=== PATIENT | female | born 1995 | race Caucasian/White ===

== ENCOUNTER 2016-08-17 08:28 | Emergency (ER) | payer OTHER ==
--- NOTE | 2016-08-17 09:14 | ED ---
General Adult HPI - General Chief complaint: Abdominal Pain Stated complaint: Abd.pain Time Seen by Provider: 08/17/16 09:00 Source: patient, RN notes reviewed Mode of arrival: ambulatory Limitations: no limitations - History of Present Illness Initial comments: Patient 21-year-old female who presents emergency room today with chief complaint of abdominal discomfort over the last 3 days. She does admit that pain comes and goes. She describes it as aching and throbbing at times. States that at times it's a 7 out of 10. States more comfortable currently. Denies any other associated symptoms. States that time she's noticed that it's worse with certain movements located on the right side of the abdomen. She also admits to some discomfort with the abdomen after urination. Patient denies any other complaints or symptoms. Patient denies any recent fever, chills, shortness of breath, chest pain, back pain, nausea or vomiting, numbness or tingling, dysuria or hematuria, constipation or diarrhea, headaches or visual changes, or any other complaints. - Related Data Previous Rx's Medication Instructions Recorded Nitrofurantoin Monohyd/M-Cryst 100 mg PO Q12HR #14 cap 08/17/16 [Macrobid] Allergies Allergy/AdvReac Type Severity Reaction Status Date / Time No Known Allergies Allergy Verified 08/17/16 08:49 Review of Systems ROS Statement: Those systems with pertinent positive or pertinent negative responses have been documented in the HPI. ROS Other: All systems not noted in ROS Statement are negative. Past Medical History Past Medical History: No Reported History Additional Past Medical History / Comment(s): GALL BLADDER PROBLEMS-ABDOMEN SORE UNDER GALL BLADDER AREA History of Any Multi-Drug Resistant Organisms: None Reported Past Surgical History: Section Additional Past Surgical History / Comment(s): X 2 Past Anesthesia/Blood Transfusion Reactions: No Reported Reaction Past Psychological History: Anxiety Smoking Status: Never smoker Past Alcohol Use History: None Reported Past Drug Use History: None Reported - Past Family History Mother History Unknown: Yes General Exam - General Exam Comments Initial Comments: General: The patient is awake and alert, in no distress, and does not appear acutely ill. Eye: Pupils are equal, round and reactive to light, extra-ocular movements are intact. No nystagmus. There is normal conjunctiva bilaterally. No signs of icterus. Ears, nose, mouth and throat: There are moist mucous membranes and no oral lesions. Neck: The neck is supple, there is no tenderness or JVD. Cardiovascular: There is a regular rate and rhythm. No murmur, rub or gallop is appreciated. Respiratory: Lungs are clear to auscultation, respirations are non-labored, breath sounds are equal. No wheezes, stridor, rales, or rhonchi. Gastrointestinal: Normal appearance of the abdomen. Normal bowel sounds. Abdomen soft on palpation. Patient does have mild tenderness suprapubic and right lower quadrant. No rebound tenderness. No guarding. No CVA tenderness. Musculoskeletal: Normal ROM, no tenderness. Strength 5/5. Sensation intact. Pulses equal bilaterally 2+. Neurological: A&O x 3. CN II-XII intact, There are no obvious motor or sensory deficits. Coordination appears grossly intact. Speech is normal. Skin: Skin is warm and dry and no rashes or lesions are noted. Psychiatric: Cooperative, appropriate mood & affect, normal judgment. Limitations: no limitations Course Vital Signs 08/17/16 08:30 Temperature 98.2 F Pulse Rate 79 Respiratory 17 Rate Blood Pressure 118/70 O2 Sat by Pulse 100 Oximetry Medical Decision Making - Medical Decision Making Case discussed in detail with attending physician Dr. Baez. Patient reexamined at this time shows no signs of distress. Patient's urinalysis was positive for a . Beta hCG was added showing 1700 today. Ultrasound shows a gestational sac measuring 5 weeks 0 days. No heartbeat at this time. Patient' s urinalysis shows evidence for urinary tract infection will be treated with antibiotic. She is advised follow-up to [facility]. Patient denies any vaginal bleeding or discharge. Patient will follow-up with [facility] for pelvic exam. Patient advised return to emergency room if any symptoms increase or worsen or for any other concerns. - Lab Data Result diagrams: 08/17/16 09:00 08/17/16 09:00 Lab Results 08/17/16 08/17/16 08/17/16 Range/Units 09:00 09:00 09:00 WBC (3.8-10.6) k/uL RBC (3.80-5.40) m/uL Hgb (11.4-16.0) gm/dL Hct (34.0-46.0) % MCV (80.0-100.0) fL MCH (25.0-35.0) pg MCHC (31.0-37.0) g/dL RDW (11.5-15.5) % Plt Count (150-450) k/uL Neutrophils % % Lymphocytes % % Monocytes % % Eosinophils % % Basophils % % Neutrophils # (1.3-7.7) k/uL Lymphocytes # (1.0-4.8) k/uL Monocytes # (0-1.0) k/uL Eosinophils # (0-0.7) k/uL Basophils # (0-0.2) k/uL Hypochromasia Anisocytosis Sodium 142 (137-145) mmol/L Potassium 4.0 (3.5-5.1) mmol/L Chloride 108 H (98-107) mmol/L Carbon Dioxide 23 (22-30) mmol/L Anion Gap 11 mmol/L BUN 13 (7-17) mg/dL Creatinine 0.68 (0.52-1.04) mg/dL Est GFR (MDRD) Af Amer >60 (>60 ml/min/1.73 sqM) Est GFR (MDRD) Non-Af >60 (>60 ml/min/1.73 sqM) Glucose 83 (74-99) mg/dL Calcium 8.8 (8.4-10.2) mg/dL Total Bilirubin 0.4 (0.2-1.3) mg/dL AST 25 (14-36) U/L ALT 40 (9-52) U/L Alkaline Phosphatase 63 (38-126) U/L Total Protein 7.1 (6.3-8.2) g/dL Albumin 4.0 (3.5-5.0) g/dL Amylase 36 (30-110) U/L Lipase 36 (23-300) U/L HCG, Quant mIU/mL Urine Color Yellow Urine Appearance Cloudy H (Clear) Urine pH 6.0 (5.0-8.0) Ur Specific [place] 1.027 (1.001-1.035) Urine Protein 1+ H (Negative) Urine Glucose (UA) Negative (Negative) Urine Ketones Negative (Negative) Urine Blood Negative (Negative) Urine Nitrate Negative (Negative) Urine Bilirubin Negative (Negative) Urine Urobilinogen <2.0 (<2.0) mg/dL Ur Leukocyte Esterase Large H (Negative) Urine RBC 6 H (0-5) /hpf Urine WBC 44 H (0-5) /hpf Ur Squamous Epith Cells 4 (0-4) /hpf Urine Bacteria Rare H (None) /hpf Urine Mucus Few H (None) /hpf Urine HCG, Qual Detected (Not Detectd) Blood Type Blood Type Recheck 08/17/16 08/17/16 08/17/16 Range/Units 09:00 09:00 09:00 WBC 5.7 (3.8-10.6) k/uL RBC 4.12 (3.80-5.40) m/uL Hgb 10.8 L (11.4-16.0) gm/dL Hct 35.1 (34.0-46.0) % MCV 85.0 (80.0-100.0) fL MCH 26.1 (25.0-35.0) pg MCHC 30.7 L (31.0-37.0) g/dL RDW 16.8 H (11.5-15.5) % Plt Count 198 (150-450) k/uL Neutrophils % 73 % Lymphocytes % 17 % Monocytes % 7 % Eosinophils % 1 % Basophils % 1 % Neutrophils # 4.1 (1.3-7.7) k/uL Lymphocytes # 1.0 (1.0-4.8) k/uL Monocytes # 0.4 (0-1.0) k/uL Eosinophils # 0.0 (0-0.7) k/uL Basophils # 0.0 (0-0.2) k/uL Hypochromasia Slight Anisocytosis Slight Sodium (137-145) mmol/L Potassium (3.5-5.1) mmol/L Chloride (98-107) mmol/L Carbon Dioxide (22-30) mmol/L Anion Gap mmol/L BUN (7-17) mg/dL Creatinine (0.52-1.04) mg/dL Est GFR (MDRD) Af Amer (>60 ml/min/1.73 sqM) Est GFR (MDRD) Non-Af (>60 ml/min/1.73 sqM) Glucose (74-99) mg/dL Calcium (8.4-10.2) mg/dL Total Bilirubin (0.2-1.3) mg/dL AST (14-36) U/L ALT (9-52) U/L Alkaline Phosphatase (38-126) U/L Total Protein (6.3-8.2) g/dL Albumin (3.5-5.0) g/dL Amylase (30-110) U/L Lipase (23-300) U/L HCG, Quant 1756.2 mIU/mL Urine Color Urine Appearance (Clear) Urine pH (5.0-8.0) Ur Specific [place] (1.001-1.035) Urine Protein (Negative) Urine Glucose (UA) (Negative) Urine Ketones (Negative) Urine Blood (Negative) Urine Nitrate (Negative) Urine Bilirubin (Negative) Urine Urobilinogen (<2.0) mg/dL Ur Leukocyte Esterase (Negative) Urine RBC (0-5) /hpf Urine WBC (0-5) /hpf Ur Squamous Epith Cells (0-4) /hpf Urine Bacteria (None) /hpf Urine Mucus (None) /hpf Urine HCG, Qual (Not Detectd) Blood Type A Positive Blood Type Recheck No Disposition Clinical Impression: , UTI (urinary tract infection) Disposition: HOME SELF-CARE Condition: Good Instructions: Urinary Tract Infection in Women (ED) Additional Instructions: Please have blood redrawn in 2 days as discussed and have results sent to the OB /[facility]. Please follow-up through [facility] over the next 2-5 days. Please return here the emergency room if any symptoms increase or worsen or for any other concerns. Prescriptions: Nitrofurantoin Monohyd/M-Cryst [Macrobid] 100 mg PO Q12HR #14 cap Time of Disposition: 11:23
[2016-08-17 09:29] LABS: Anisocytosis Slight; Basophils % (A) 1 %; CH 26.6; CHCM 31.5; Eosinophils % (A) 1 %; HCT 35.1 % (34.0-46.0); HDW 2.96; HGB 10.8 gm/dL (11.4-16.0); Hypochromasia Slight; Luc # (Auto) 0.13; Luc % (Auto) 2; Lymphocytes % (A) 17 %; MCH 26.1 pg (25.0-35.0); MCHC 30.7 g/dL (31.0-37.0); Mean Platelet Volume 8.3; Monocytes # (A) 0.4 k/uL (0-1.0); Monocytes % (A) 7 %; Neutrophils # (A) 4.1 k/uL (1.3-7.7); Neutrophils % (A) 73 %; RBC 4.12 m/uL (3.80-5.40); RDW 16.8 % (11.5-15.5); WBC 5.7 k/uL (3.8-10.6); WBC (Perox) 5.96
[2016-08-17 09:38] LABS: Appearance,Urine Cloudy (Clear); Bacteria,Urine Rare /hpf; Bilirubin,Urine Negative (Negative); Glucose,Urine (UA) Negative (Negative); Ketones,Urine Negative (Negative); Leukocyte Esterase,Urine Large (Negative); Mucus,Urine Few /hpf; Nitrite,Urine Negative (Negative); Particle Count 7098; Protein,Urine 1+ (Negative); RBC,Urine 6 /hpf (0-5); Specific Gravity,Urine 1.027 (1.001-1.035); Squamous Epithelial Cell,Urine 4 /hpf (0-4); UA Billing (MACRO vs. MICRO) MICRO; Urobilinogen,Urine <2.0 mg/dL (<2.0); WBC,Urine 44 /hpf (0-5)
[2016-08-17 09:45] LABS: ALT 40 U/L (9-52); AST 25 U/L (14-36); Alkaline Phosphatase 63 U/L (38-126); Amylase 36 U/L (30-110); Anion Gap 11 mmol/L; Blood Urea Nitrogen 13 mg/dL (7-17); Calcium 8.8 mg/dL (8.4-10.2); Carbon Dioxide 23 mmol/L (22-30); Chloride 108 mmol/L (98-107); Glucose 83 mg/dL (74-99); Non-African American GFR(MDRD) >60 (>60 ml/min/1.73 sqM); Sodium 142 mmol/L (137-145); Total Bilirubin 0.4 mg/dL (0.2-1.3); Total Protein 7.1 g/dL (6.3-8.2)
--- NOTE | 2016-08-17 11:04 | US ---
EXAMINATION TYPE: US OB <=14 wks transvag DATE OF EXAM: 08/17/2016 10:34 AM COMPARISON: NONE CLINICAL HISTORY: Pain. Unknown LMP, RLQ pain, hx of EXAM PERFORMED: Transvaginal (TV) and Transabdominal (TA) EXAM MEASUREMENTS: GESTATIONAL AGE / DATING Dates by LMP: Unknown Dates by Current Scan: ( 5 weeks/0 days) EDC: 04/19/2017 MATERNAL ANATOMY Uterus: 8.3 x 5.1 x 4.6 cm Right Ovary: 2.3 x 1.5 x 1.6 cm Left Ovary: 3.5 x 2.1 x 2.0 cm Post CDS / Adnexa: no free fluid Presence of free fluid: adjacent to left ovary Presence of corpus luteal cyst: left ovary= 2.3 x 1.8 x 1.7 cm Presence of subchorionic bleed: 1.3 x 1.7 x 0.2 cm GESTATION / SURVEY CRL: not seen MSD: 0.3 cm (5 weeks/0 days) Yolk Sac (normal less than 6mm): not seen Heart Rate: CRL not seen IUP: No IUP seen at this time Date of LMP: unknown, , Fraternal twins Beta HcG (if available): not available TECHNOLOGIST IMPRESSION: GS and subchorionic bleed. Gestational sac measuring 5 weeks 0 days. There may be a nabothian cyst present. IMPRESSION: 1. Single intrauterine gestational sac. [place]-rump length is not identified. Blighted Ovum should be considered. Could be an early intrauterine and follow-up and correlation with beta hCGs rec ommended.
[2016-08-17 11:55] VITALS: BP 119/73; PULSE 77; RESP 16; TEMP 98.4
== END 2016-08-17 11:54 | disposition home or self-care (01) ==
LOC: EC 08:28
DX: O23.41 Unspecified infection of urinary tract in pregnancy, first trimester (principal); Z3A.01 Less than 8 weeks gestation of pregnancy
CPT/HCPCS: 36415; 76801; 76817; 80053; 81001; 81025; 82150; 83690; 84702; 85025; 86900; 86901; 87077; 87086; 87186; 99284

== ENCOUNTER 2016-09-13 21:01 | Emergency (ER) | payer OTHER ==
[2016-09-13 21:18] VITALS: BP 127/77; PULSE 78; RESP 16; TEMP 98.1
--- NOTE | 2016-09-13 22:42 | ED ---
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 Patient reports that she is currently 9 weeks . Patient's UNIX ENGINEER is Dr. Barahona and she has an appointment on September 16 but has not seen her for this yet. This is patient's fourth and she does have 3 living children. Patient does have history of 2 C -sections. She reports that her second she did have placenta previa. She takes that she does have a cramping sensation in her lower abdomen. She reports that she was busy and active today and moving a lot of boxes which she thinks may have caused her to cause this. She also denies any nausea or vomiting or fever or chills. Last Menstrual Period: 07/12/16 - Related Data Home Medications Medication Instructions Recorded Confirmed No Known Home Medications [No 09/13/16 09/13/16 Known Home Medications] Allergies Allergy/AdvReac Type Severity Reaction Status Date / Time No Known Allergies Allergy Verified 09/13/16 21:37 Review of Systems ROS Statement: Those systems with pertinent positive or pertinent negative responses have been documented in the HPI. ROS Other: All systems not noted in ROS Statement are negative. Past Medical History Past Medical History: No Reported History Additional Past Medical History / Comment(s): GALL BLADDER PROBLEMS-ABDOMEN SORE UNDER GALL BLADDER AREA History of Any Multi-Drug Resistant Organisms: None Reported Past Surgical History: Section, Cholecystectomy Additional Past Surgical History / Comment(s): X 2 Past Anesthesia/Blood Transfusion Reactions: No Reported Reaction Past Psychological History: Anxiety Smoking Status: Never smoker Past Alcohol Use History: None Reported Past Drug Use History: None Reported - Past Family History Mother History Unknown: Yes General Exam - General Exam Comments Initial Comments: Patient is a pleasant 21-year-old female. Patient does not appear to be in any acute distress. Limitations: no limitations General appearance: alert, in no apparent distress Head exam: Present: atraumatic, normocephalic, normal inspection Eye exam: Present: normal appearance, PERRL, EOMI. Absent: scleral icterus, conjunctival injection, periorbital swelling ENT exam: Present: normal exam, mucous membranes moist Neck exam: Present: normal inspection. Absent: tenderness, meningismus, lymphadenopathy Respiratory exam: Present: normal lung sounds bilaterally. Absent: respiratory distress, wheezes, rales, rhonchi, stridor Cardiovascular Exam: Present: regular rate, normal rhythm, normal heart sounds. Absent: systolic murmur, diastolic murmur, rubs, gallop, clicks GI/Abdominal exam: Present: soft, tenderness (Patient reports a lower abdominal cramping tenderness.), normal bowel sounds. Absent: distended, guarding, rebound, rigid External exam: Present: normal external exam Speculum exam: Present: vaginal bleeding (slight dark blood vaginal bleeding. ) . Absent: normal speculum exam By manual exam: Present: normal by manual exam. Absent: cervical motion tenderness, adnexal tenderness Extremities exam: Present: normal inspection, full ROM, normal capillary refill. Absent: tenderness, pedal edema, joint swelling, calf tenderness Back exam: Present: normal inspection Neurological exam: Present: alert, oriented X3, CN II-XII intact Psychiatric exam: Present: normal affect, normal mood Skin exam: Present: warm, dry, intact, normal color. Absent: rash Course Vital Signs 09/13/16 21:15 Temperature 98.1 F Pulse Rate 78 Respiratory 16 Rate Blood Pressure 127/77 O2 Sat by Pulse 99 Oximetry Medical Decision Making - Medical Decision Making Patient is a 21-year-old [employer] chief complaint of spotty vaginal bleeding for approximately one afternoon. Patient reports that she is currently 9 weeks . Patient was given a transvaginal ultrasound, serum Quant hCG and type and screen were also obtained. PAtient serum hcg is 23,887. Transvaginal US shows gestational IUP measuring 6 weeks, heart tones were not detected. Patient is A positive. Patient vaginal exam did show some scant bleeding, no evidence of clots or dilated cervix. Patient was informed of the results and given outpatient lab work for repeat hcg. Patient has a follow up appointment with Dr. Barahona on September 16, she will repeat blood work on September 15. Patient understands treatment plan and return parameters. - Lab Data Result diagrams: 09/13/16 22:41 Lab Results 09/13/16 09/13/16 09/13/16 Range/Units 22:41 22:41 22:41 WBC 5.4 (3.8-10.6) k/uL RBC 4.08 (3.80-5.40) m/uL Hgb 10.9 L (11.4-16.0) gm/dL Hct 35.3 (34.0-46.0) % MCV 86.4 (80.0-100.0) fL MCH 26.8 (25.0-35.0) pg MCHC 31.0 (31.0-37.0) g/dL RDW 17.6 H (11.5-15.5) % Plt Count 204 (150-450) k/uL Neutrophils % 51 % Lymphocytes % 37 % Monocytes % 6 % Eosinophils % 2 % Basophils % 1 % Neutrophils # 2.8 (1.3-7.7) k/uL Lymphocytes # 2.0 (1.0-4.8) k/uL Monocytes # 0.3 (0-1.0) k/uL Eosinophils # 0.1 (0-0.7) k/uL Basophils # 0.0 (0-0.2) k/uL Hypochromasia Slight Anisocytosis Slight PT (9.0-12.0) sec INR (<1.1) APTT (22.0-30.0) sec HCG, Quant mIU/mL Urine Color Urine Appearance (Clear) Urine pH (5.0-8.0) Ur Specific [place] (1.001-1.035) Urine Protein (Negative) Urine Glucose (UA) (Negative) Urine Ketones (Negative) Urine Blood (Negative) Urine Nitrate (Negative) Urine Bilirubin (Negative) Urine Urobilinogen (<2.0) mg/dL Ur Leukocyte Esterase (Negative) Urine RBC (0-5) /hpf Urine WBC (0-5) /hpf Ur Squamous Epith Cells (0-4) /hpf Urine Mucus (None) /hpf Urine HCG, Qual Detected (Not Detectd) Trichomonas Ag (Rapid) (Negative) Blood Type A Positive Blood Type Recheck No 09/13/16 09/13/16 09/13/16 Range/Units 22:41 22:41 22:41 WBC (3.8-10.6) k/uL RBC (3.80-5.40) m/uL Hgb (11.4-16.0) gm/dL Hct (34.0-46.0) % MCV (80.0-100.0) fL MCH (25.0-35.0) pg MCHC (31.0-37.0) g/dL RDW (11.5-15.5) % Plt Count (150-450) k/uL Neutrophils % % Lymphocytes % % Monocytes % % Eosinophils % % Basophils % % Neutrophils # (1.3-7.7) k/uL Lymphocytes # (1.0-4.8) k/uL Monocytes # (0-1.0) k/uL Eosinophils # (0-0.7) k/uL Basophils # (0-0.2) k/uL Hypochromasia Anisocytosis PT 10.0 (9.0-12.0) sec INR 1.0 (<1.1) APTT 24.6 (22.0-30.0) sec HCG, Quant 74609.9 mIU/mL Urine Color Yellow Urine Appearance Clear (Clear) Urine pH 6.0 (5.0-8.0) Ur Specific [place] 1.028 (1.001-1.035) Urine Protein Trace H (Negative) Urine Glucose (UA) Negative (Negative) Urine Ketones Negative (Negative) Urine Blood Large H (Negative) Urine Nitrate Negative (Negative) Urine Bilirubin Negative (Negative) Urine Urobilinogen <2.0 (<2.0) mg/dL Ur Leukocyte Esterase Trace H (Negative) Urine RBC >182 H (0-5) /hpf Urine WBC 11 H (0-5) /hpf Ur Squamous Epith Cells 1 (0-4) /hpf Urine Mucus Occasional H (None) /hpf Urine HCG, Qual (Not Detectd) Trichomonas Ag (Rapid) (Negative) Blood Type Blood Type Recheck 09/13/16 Range/Units 23:20 WBC (3.8-10.6) k/uL RBC (3.80-5.40) m/uL Hgb (11.4-16.0) gm/dL Hct (34.0-46.0) % MCV (80.0-100.0) fL MCH (25.0-35.0) pg MCHC (31.0-37.0) g/dL RDW (11.5-15.5) % Plt Count (150-450) k/uL Neutrophils % % Lymphocytes % % Monocytes % % Eosinophils % % Basophils % % Neutrophils # (1.3-7.7) k/uL Lymphocytes # (1.0-4.8) k/uL Monocytes # (0-1.0) k/uL Eosinophils # (0-0.7) k/uL Basophils # (0-0.2) k/uL Hypochromasia Anisocytosis PT (9.0-12.0) sec INR (<1.1) APTT (22.0-30.0) sec HCG, Quant mIU/mL Urine Color Urine Appearance (Clear) Urine pH (5.0-8.0) Ur Specific [place] (1.001-1.035) Urine Protein (Negative) Urine Glucose (UA) (Negative) Urine Ketones (Negative) Urine Blood (Negative) Urine Nitrate (Negative) Urine Bilirubin (Negative) Urine Urobilinogen (<2.0) mg/dL Ur Leukocyte Esterase (Negative) Urine RBC (0-5) /hpf Urine WBC (0-5) /hpf Ur Squamous Epith Cells (0-4) /hpf Urine Mucus (None) /hpf Urine HCG, Qual (Not Detectd) Trichomonas Ag (Rapid) Negative (Negative) Blood Type Blood Type Recheck - Radiology Data Radiology results: report reviewed Intrauterine gestation with estimated age of 6 weeks and 0 days. No heart tone was detected concerning for demise. This could be correlated to real-time scanning or short-term follow-up with ultrasound confirming as needed. Probable corpus luteum cyst in left ovary as above. This to be confirmed by future follow-up ultrasound to ensure clearing. Disposition Clinical Impression: Threatened miscarriage Disposition: HOME SELF-CARE Condition: Good Instructions: Threatened Miscarriage (ED) Additional Instructions: Patient advised to repeat her blood work in the next 48 hours. Patient is to follow-up with Dr. Barahona and discussed the results of the lab work. Return to the emergency department if any alarming signs or symptoms occur. Referrals: Tim Cantor MD [Primary Care Provider] - 1-2 days Time of Disposition: 00:09
--- NOTE | 2016-09-13 22:58 | US ---
EXAM: US First Trimester, Transabdominal. US , Transvaginal. CLINICAL HISTORY: Reason: pain TECHNIQUE: Real-time transabdominal and transvaginal obstetrical ultrasound of the maternal pelvis and a first trimester with image documentation. Transvaginal imaging was used for better evaluation of the fetus and adnexa. COMPARISON: 08/17/16 ultrasound. FINDINGS: Gestation: There is a single intrauterine gestation present, with average ultrasound age of 6 weeks 0 day based on average crown rump length. On the images which were submitted, no heart tone was detected. Placenta/amniotic fluid: Cannot be adequately evaluated due to the early gestational age. Uterus/cervix: Unremarkable. No myometrial mass. Ovaries: Again seen within the left ovary is a complex septated cyst the size of which was measured at 1.7 x 1.4 x 1.3 cm and which was present previously, again favoring a corpus luteal cyst. Free fluid: Small of free fluid seen in the cul-de-sac, nonspecific. IMPRESSION: 1. Intrauterine gestation with estimated age of 6 weeks 0 day. No heart tone was detected, concerning for demise. This could be correlated with real-time scanning and/or short term follow-up ultrasound to confirm as needed. 2. Probable corpus luteal cyst in the left ovary, as above. This too could be confirmed by future follow-up ultrasound, to ensure clearing.
[2016-09-13 23:06] LABS: Appearance,Urine Clear (Clear); Bilirubin,Urine Negative (Negative); Glucose,Urine (UA) Negative (Negative); Ketones,Urine Negative (Negative); Leukocyte Esterase,Urine Trace (Negative); Mucus,Urine Occasional /hpf; Nitrite,Urine Negative (Negative); Particle Count 4107; Protein,Urine Trace (Negative); RBC,Urine >182 /hpf (0-5); Specific Gravity,Urine 1.028 (1.001-1.035); Squamous Epithelial Cell,Urine 1 /hpf (0-4); UA Billing (MACRO vs. MICRO) MICRO; Urobilinogen,Urine <2.0 mg/dL (<2.0); WBC,Urine 11 /hpf (0-5)
[2016-09-13 23:08] LABS: Anisocytosis Slight; Basophils % (A) 1 %; CH 27.4; CHCM 31.8; Eosinophils # (A) 0.1 k/uL (0-0.7); Eosinophils % (A) 2 %; HCT 35.3 % (34.0-46.0); HDW 2.83; HGB 10.9 gm/dL (11.4-16.0); Hypochromasia Slight; Luc # (Auto) 0.21; Luc % (Auto) 4; Lymphocytes % (A) 37 %; MCH 26.8 pg (25.0-35.0); MCV 86.4 fL (80.0-100.0); Mean Platelet Volume 8.8; Monocytes # (A) 0.3 k/uL (0-1.0); Monocytes % (A) 6 %; Neutrophils # (A) 2.8 k/uL (1.3-7.7); Neutrophils % (A) 51 %; RBC 4.08 m/uL (3.80-5.40); RDW 17.6 % (11.5-15.5); WBC 5.4 k/uL (3.8-10.6); WBC (Perox) 5.92
[2016-09-13 23:18] LABS: Partial Thromboplastin Time 24.6 sec (22.0-30.0)
== END 2016-09-14 00:16 | disposition home or self-care (01) ==
LOC: EC 21:01
DX: O20.0 Threatened abortion (principal); Z3A.01 Less than 8 weeks gestation of pregnancy
CPT/HCPCS: 36415; 76801; 76817; 81001; 81025; 84702; 85025; 85610; 85730; 86900; 86901; 87070; 87205; 87491; 87591; 87808; 99284

== ENCOUNTER 2016-12-27 22:09 | Emergency (ER) | payer OTHER ==
[2016-12-27 22:15] VITALS: PULSE 88; RESP 18
[2016-12-27] MEDS ORDERED: FAMOTIDINE 20 MG TAB PO STA (22:51)
[2016-12-27] MEDS ORDERED: DICYCLOMINE 10 MG/ML 2 ML AMP IM STA (22:51)
--- NOTE | 2016-12-27 22:55 | ED ---
Abdominal Pain HPI - General Chief Complaint: Abdominal Pain Stated Complaint: abdominal pain Time Seen by Provider: 12/27/16 22:35 Source: patient, family, RN/MD, RN notes reviewed Mode of arrival: ambulatory Limitations: no limitations - History of Present Illness Initial Comments: This is a pleasant 21-year-old female comes to the ER complaining of 2 days of upper abdominal discomfort. She states it feels like a dull pain across her upper abdomen. She has had mild nausea. Pain has been constant. There are no alleviating or exacerbating factors. Patient has been eating and drinking normally. No problems with bowel movements or urination. She states there is some tenderness in the middle of her upper abdomen. Patient is status post cholecystectomy. Patient denies chance of , she states that she had a miscarriage 3 months ago. No shortness of breath or chest pain. No back pain. No problems with urination. No fever or chills. No new medications. No history of pancreatitis or liver disease. No history of peptic ulcer disease. - Related Data Previous Rx's Medication Instructions Recorded Dicyclomine [Bentyl] 20 mg PO QID #24 tablet 12/28/16 Famotidine [Pepcid] 20 mg PO BID #30 tablet 12/28/16 Allergies Allergy/AdvReac Type Severity Reaction Status Date / Time No Known Allergies Allergy Verified 12/27/16 22:38 Review of Systems ROS Statement: Those systems with pertinent positive or pertinent negative responses have been documented in the HPI. ROS Other: All systems not noted in ROS Statement are negative. Past Medical History Past Medical History: No Reported History Additional Past Medical History / Comment(s): GALL BLADDER PROBLEMS-ABDOMEN SORE UNDER GALL BLADDER AREA History of Any Multi-Drug Resistant Organisms: None Reported Past Surgical History: Section, Cholecystectomy Additional Past Surgical History / Comment(s): X 2 Past Anesthesia/Blood Transfusion Reactions: No Reported Reaction Past Psychological History: Anxiety Smoking Status: Never smoker Past Alcohol Use History: Occasional Past Drug Use History: None Reported - Past Family History Mother History Unknown: Yes General Exam - General Exam Comments Initial Comments: Well-developed, well-nourished 21-year-old female in no distress Limitations: no limitations General appearance: alert, in no apparent distress Head exam: Present: atraumatic, normocephalic, normal inspection Eye exam: Present: normal appearance, PERRL, EOMI. Absent: scleral icterus, conjunctival injection, periorbital swelling ENT exam: Present: normal exam, mucous membranes moist Neck exam: Present: normal inspection. Absent: tenderness, meningismus, lymphadenopathy Respiratory exam: Present: normal lung sounds bilaterally. Absent: respiratory distress, wheezes, rales, rhonchi, stridor Cardiovascular Exam: Present: regular rate, normal rhythm, normal heart sounds. Absent: systolic murmur, diastolic murmur, rubs, gallop, clicks GI/Abdominal exam: Present: soft, tenderness (Patient has very mild tenderness in the epigastrium.), normal bowel sounds. Absent: distended, guarding, rebound , rigid Extremities exam: Present: normal inspection, full ROM, normal capillary refill. Absent: tenderness, pedal edema, joint swelling, calf tenderness Back exam: Present: normal inspection Neurological exam: Present: alert, oriented X3, CN II-XII intact Psychiatric exam: Present: normal affect, normal mood Skin exam: Present: warm, dry, intact, normal color. Absent: rash Course Vital Signs 12/27/16 22:12 Temperature 97.3 F L Pulse Rate 88 Respiratory 18 Rate Blood Pressure 116/71 O2 Sat by Pulse 97 Oximetry Medical Decision Making - Medical Decision Making Patient's laboratory values are essentially unremarkable. Patient did have just mild anemia with hemoglobin 11.3. Patient had a CO2 level of 20. No other acute findings. Patient does not look ill or toxic. Patient did improve with Bentyl and Pepcid. Patient also had a positive test. We will have the patient follow-up with Dr. Barahona. vitamin be prescribed. Return parameters discussed. Patient did have a lot of questions pertaining to general health. I did reassure the patient and residential youth counselor the patient. Patient needs to obtain a primary care physician for follow-up. - Lab Data Result diagrams: 12/27/16 23:36 12/27/16 23:36 Lab Results 12/27/16 12/27/16 12/27/16 Range/Units 23:36 23:36 23:36 WBC (3.8-10.6) k/uL RBC (3.80-5.40) m/uL Hgb (11.4-16.0) gm/dL Hct (34.0-46.0) % MCV (80.0-100.0) fL MCH (25.0-35.0) pg MCHC (31.0-37.0) g/dL RDW (11.5-15.5) % Plt Count (150-450) k/uL Neutrophils % % Lymphocytes % % Monocytes % % Eosinophils % % Basophils % % Neutrophils # (1.3-7.7) k/uL Lymphocytes # (1.0-4.8) k/uL Monocytes # (0-1.0) k/uL Eosinophils # (0-0.7) k/uL Basophils # (0-0.2) k/uL Anisocytosis PT (9.0-12.0) sec INR (<1.1) APTT (22.0-30.0) sec Sodium 139 (137-145) mmol/L Potassium 3.5 (3.5-5.1) mmol/L Chloride 107 (98-107) mmol/L Carbon Dioxide 20 L (22-30) mmol/L Anion Gap 12 mmol/L BUN 14 (7-17) mg/dL Creatinine 0.70 (0.52-1.04) mg/dL Est GFR (MDRD) Af Amer >60 (>60 ml/min/1.73 sqM) Est GFR (MDRD) Non-Af >60 (>60 ml/min/1.73 sqM) Glucose 86 (74-99) mg/dL Calcium 9.2 (8.4-10.2) mg/dL Total Bilirubin 0.5 (0.2-1.3) mg/dL AST 22 (14-36) U/L ALT 33 (9-52) U/L Alkaline Phosphatase 70 (38-126) U/L Total Protein 7.3 (6.3-8.2) g/dL Albumin 4.3 (3.5-5.0) g/dL Amylase 54 (30-110) U/L Lipase 56 (23-300) U/L Urine Color Yellow Urine Appearance Clear (Clear) Urine pH 6.0 (5.0-8.0) Ur Specific [place] 1.029 (1.001-1.035) Urine Protein Trace H (Negative) Urine Glucose (UA) Negative (Negative) Urine Ketones 1+ H (Negative) Urine Blood Negative (Negative) Urine Nitrite Negative (Negative) Urine Bilirubin Negative (Negative) Urine Urobilinogen <2.0 (<2.0) mg/dL Ur Leukocyte Esterase Negative (Negative) Urine HCG, Qual Detected (Not Detectd) 12/27/16 12/27/16 Range/Units 23:36 23:36 WBC 6.2 (3.8-10.6) k/uL RBC 4.13 (3.80-5.40) m/uL Hgb 11.3 L (11.4-16.0) gm/dL Hct 34.4 (34.0-46.0) % MCV 83.2 (80.0-100.0) fL MCH 27.3 (25.0-35.0) pg MCHC 32.8 (31.0-37.0) g/dL RDW 16.6 H (11.5-15.5) % Plt Count 207 (150-450) k/uL Neutrophils % 61 % Lymphocytes % 23 % Monocytes % 6 % Eosinophils % 5 % Basophils % 0 % Neutrophils # 3.8 (1.3-7.7) k/uL Lymphocytes # 1.4 (1.0-4.8) k/uL Monocytes # 0.4 (0-1.0) k/uL Eosinophils # 0.3 (0-0.7) k/uL Basophils # 0.0 (0-0.2) k/uL Anisocytosis Slight PT 10.0 (9.0-12.0) sec INR 1.0 (<1.1) APTT 25.1 (22.0-30.0) sec Sodium (137-145) mmol/L Potassium (3.5-5.1) mmol/L Chloride (98-107) mmol/L Carbon Dioxide (22-30) mmol/L Anion Gap mmol/L BUN (7-17) mg/dL Creatinine (0.52-1.04) mg/dL Est GFR (MDRD) Af Amer (>60 ml/min/1.73 sqM) Est GFR (MDRD) Non-Af (>60 ml/min/1.73 sqM) Glucose (74-99) mg/dL Calcium (8.4-10.2) mg/dL Total Bilirubin (0.2-1.3) mg/dL AST (14-36) U/L ALT (9-52) U/L Alkaline Phosphatase (38-126) U/L Total Protein (6.3-8.2) g/dL Albumin (3.5-5.0) g/dL Amylase (30-110) U/L Lipase (23-300) U/L Urine Color Urine Appearance (Clear) Urine pH (5.0-8.0) Ur Specific [place] (1.001-1.035) Urine Protein (Negative) Urine Glucose (UA) (Negative) Urine Ketones (Negative) Urine Blood (Negative) Urine Nitrite (Negative) Urine Bilirubin (Negative) Urine Urobilinogen (<2.0) mg/dL Ur Leukocyte Esterase (Negative) Urine HCG, Qual (Not Detectd) Disposition Clinical Impression: Epigastric abdominal pain, Disposition: HOME SELF-CARE Condition: Good Instructions: Abdominal Pain (ED), (ED) Additional Instructions: Follow-up with her OB doctor as directed. He will need to also follow-up with her primary care physician for reevaluation.Return to the ER at once if the symptoms worsen or problems or difficulties arise. Prescriptions: Dicyclomine [Bentyl] 20 mg PO QID #24 tablet Famotidine [Pepcid] 20 mg PO BID #30 tablet Referrals: Ailyn Barahona DO [Doctor of Osteopathic Medicine] - 12/31/16 Lazaro Wing MD [REFERRING] - 12/30/16 Time of Disposition: 01:04
[2016-12-27 23:58] LABS: Anisocytosis Slight; Basophils % (A) 0 %; CH 26.9; CHCM 32.4; Eosinophils # (A) 0.3 k/uL (0-0.7); Eosinophils % (A) 5 %; HCT 34.4 % (34.0-46.0); HDW 2.94; HGB 11.3 gm/dL (11.4-16.0); Luc # (Auto) 0.23; Luc % (Auto) 4; Lymphocytes # (A) 1.4 k/uL (1.0-4.8); Lymphocytes % (A) 23 %; MCH 27.3 pg (25.0-35.0); MCHC 32.8 g/dL (31.0-37.0); MCV 83.2 fL (80.0-100.0); Mean Platelet Volume 7.7; Monocytes # (A) 0.4 k/uL (0-1.0); Monocytes % (A) 6 %; Neutrophils # (A) 3.8 k/uL (1.3-7.7); Neutrophils % (A) 61 %; RBC 4.13 m/uL (3.80-5.40); RDW 16.6 % (11.5-15.5); WBC 6.2 k/uL (3.8-10.6)
[2016-12-28 00:13] LABS: ALT 33 U/L (9-52); AST 22 U/L (14-36); Alkaline Phosphatase 70 U/L (38-126); Amylase 54 U/L (30-110); Anion Gap 12 mmol/L; Blood Urea Nitrogen 14 mg/dL (7-17); Calcium 9.2 mg/dL (8.4-10.2); Carbon Dioxide 20 mmol/L (22-30); Chloride 107 mmol/L (98-107); Glucose 86 mg/dL (74-99); Non-African American GFR(MDRD) >60 (>60 ml/min/1.73 sqM); Potassium 3.5 mmol/L (3.5-5.1); Sodium 139 mmol/L (137-145); Total Bilirubin 0.5 mg/dL (0.2-1.3); Total Protein 7.3 g/dL (6.3-8.2)
[2016-12-28 00:38] LABS: Partial Thromboplastin Time 25.1 sec (22.0-30.0)
[2016-12-28 00:52] LABS: Appearance,Urine Clear (Clear); Bilirubin,Urine Negative (Negative); Glucose,Urine (UA) Negative (Negative); Ketones,Urine 1+ (Negative); Leukocyte Esterase,Urine Negative (Negative); Nitrite,Urine Negative (Negative); Protein,Urine Trace (Negative); Specific Gravity,Urine 1.029 (1.001-1.035); UA Billing (MACRO vs. MICRO) CHEM; Urobilinogen,Urine <2.0 mg/dL (<2.0)
[2016-12-28 01:41] VITALS: BP 126/79; TEMP 98.4
== END 2016-12-28 01:43 | disposition home or self-care (01) ==
LOC: EC 22:09
DX: O99.89 Other specified diseases and conditions complicating pregnancy, childbirth and the puerperium (principal); R10.13 Epigastric pain; R11.0 Nausea; Z32.01 Encounter for pregnancy test, result positive; Z90.49 Acquired absence of other specified parts of digestive tract
CPT/HCPCS: 36415; 80053; 82150; 83690; 85025; 85610; 85730; 81003; 81025; 99284; 96372; J0500

== ENCOUNTER 2017-01-12 19:36 | Emergency (ER) | payer OTHER ==
[2017-01-12 20:27] LABS: Amorphous Sediment,Urine Rare /hpf; Appearance,Urine Cloudy (Clear); Bacteria,Urine Many /hpf; Bilirubin,Urine Negative (Negative); Glucose,Urine (UA) Negative (Negative); Ketones,Urine Negative (Negative); Leukocyte Esterase,Urine Moderate (Negative); Mucus,Urine Rare /hpf; Nitrite,Urine Negative (Negative); PH, Urine 7.5 (5.0-8.0); Particle Count 7592; Protein,Urine 1+ (Negative); RBC,Urine 3 /hpf (0-5); Squamous Epithelial Cell,Urine 1 /hpf (0-4); UA Billing (MACRO vs. MICRO) MICRO; Urobilinogen,Urine <2.0 mg/dL (<2.0); WBC,Urine 50 /hpf (0-5)
[2017-01-12] MEDS ORDERED: SODIUM CHLORIDE 0.9% 1,000 ML IV ONE (21:13)
[2017-01-12] MEDS ORDERED: diphenhydrAMINE 50 MG/ML 1 ML VIAL IVP STA (21:13)
[2017-01-12] MEDS ORDERED: PYRIDOXINE 100 MG/ML 1 ML VIAL IVP STA (21:14)
--- NOTE | 2017-01-12 21:20 | ED ---
Abdominal Pain HPI - General Chief Complaint: Abdominal Pain Stated Complaint: Abd pain Time Seen by Provider: 01/12/17 20:57 Source: patient, RN notes reviewed Mode of arrival: ambulatory Limitations: no limitations - History of Present Illness Initial Comments: Patient is a 21-year-old female presents to the emergency room for evaluation of abdominal pain. Patient states found she was about 3 weeks ago. Patient states her last menstrual cycle was beginning of November. Patient is . Patient states she had a recent miscarriage about 3 months ago. Patient states today she began having lower abdominal cramping. Patient denies vaginal bleeding. Patient also states that she is having frequency in urination over the past day. Patient states she called [facility] and can't get in until next week. Patient states she has not had an ultrasound to confirm her yet. Patient states she's been nauseous every day since finding out she was . Patient denies chest pain or shortness of breath. Patient denies fevers or chills. Patient denies any blood in urine. Patient denies constipation or diarrhea. - Related Data Home Medications Medication Instructions Recorded Confirmed Pnv,Calcium 72/Iron/Folic Acid 2 tab PO DAILY 01/12/17 01/12/17 [ Plus Tablet] Previous Rx's Medication Instructions Recorded Metoclopramide HCl [Reglan] 5 mg PO TID PRN #12 tablet 01/12/17 Nitrofurantoin Monohyd/M-Cryst 100 mg PO Q12HR 5 Days 01/12/17 [Macrobid] Allergies Allergy/AdvReac Type Severity Reaction Status Date / Time No Known Allergies Allergy Verified 01/12/17 21:15 Review of Systems ROS Statement: Those systems with pertinent positive or pertinent negative responses have been documented in the HPI. ROS Other: All systems not noted in ROS Statement are negative. Past Medical History Past Medical History: No Reported History Additional Past Medical History / Comment(s): GALL BLADDER PROBLEMS-ABDOMEN SORE UNDER GALL BLADDER AREA History of Any Multi-Drug Resistant Organisms: None Reported Past Surgical History: Section, Cholecystectomy Additional Past Surgical History / Comment(s): X 2 Past Anesthesia/Blood Transfusion Reactions: No Reported Reaction Past Psychological History: Anxiety Smoking Status: Never smoker Past Alcohol Use History: Occasional Past Drug Use History: None Reported - Past Family History Mother History Unknown: Yes General Exam - General Exam Comments Initial Comments: Laying in exam room, no distress. Limitations: no limitations General appearance: alert, in no apparent distress Head exam: Present: atraumatic, normocephalic, normal inspection Eye exam: Present: normal appearance ENT exam: Present: normal exam Neck exam: Present: normal inspection Respiratory exam: Present: normal lung sounds bilaterally. Absent: respiratory distress Cardiovascular Exam: Present: regular rate, normal rhythm, normal heart sounds GI/Abdominal exam: Present: soft, tenderness (LLQ), normal bowel sounds. Absent : distended, guarding, rebound, rigid External exam: Present: normal external exam Speculum exam: Present: normal speculum exam. Absent: vaginal bleeding By manual exam: Present: normal by manual exam Extremities exam: Present: normal inspection Back exam: Present: normal inspection Neurological exam: Present: alert, oriented X3, CN II-XII intact, normal gait Psychiatric exam: Present: normal affect, normal mood Skin exam: Present: warm, dry, intact, normal color. Absent: rash Course Vital Signs 01/12/17 01/12/17 01/12/17 19:40 22:15 22:45 Temperature 98.7 F Pulse Rate 95 Respiratory 18 18 Rate Blood Pressure 118/73 O2 Sat by Pulse 99 99 Oximetry 01/12/17 23:20 Temperature 98.2 F Pulse Rate 89 Respiratory 16 Rate Blood Pressure 129/70 O2 Sat by Pulse 99 Oximetry - Reevaluation(s) Reevaluation #1: 01/12/17 22:52 Patient states she just noticed a light pink discharge from her vaginal area. Will set up pelvic exam. Medical Decision Making - Medical Decision Making Patient is a 21-year-old female since emergency room for evaluation of lower abdominal pain. Patient is . OB ultrasound: Single live intrauterine gestation with estimated gestational age by this ultrasound at 8 weeks 3 days and estimated delivery date of 08/21/17. Subchorionic hemorrhage measuring 2.0 x 0.6 x 1.3 cm. urinalysis suspicious for urinary tract infection. Patient be started on antibiotics. After ultrasound patient complaining of pink discharge while wiping herself. Pelvic exam shows no significant findings. No vaginal bleeding noted. Cervix is closed. Advised patient to follow-up with [facility]. Patient states she understands everything that was discussed with her. Return parameters discussed. Case discussed with Dr. Cramer. - Lab Data Result diagrams: 01/12/17 21:49 01/12/17 21:13 Lab Results 01/12/17 01/12/17 01/12/17 Range/Units 20:11 20:11 21:13 WBC (3.8-10.6) k/uL RBC (3.80-5.40) m/uL Hgb (11.4-16.0) gm/dL Hct (34.0-46.0) % MCV (80.0-100.0) fL MCH (25.0-35.0) pg MCHC (31.0-37.0) g/dL RDW (11.5-15.5) % Plt Count (150-450) k/uL Neutrophils % % Lymphocytes % % Monocytes % % Eosinophils % % Basophils % % Neutrophils # (1.3-7.7) k/uL Lymphocytes # (1.0-4.8) k/uL Monocytes # (0-1.0) k/uL Eosinophils # (0-0.7) k/uL Basophils # (0-0.2) k/uL Anisocytosis Sodium 139 (137-145) mmol/L Potassium 4.1 (3.5-5.1) mmol/L Chloride 105 (98-107) mmol/L Carbon Dioxide 22 (22-30) mmol/L Anion Gap 12 mmol/L BUN 11 (7-17) mg/dL Creatinine 0.76 (0.52-1.04) mg/dL Est GFR (MDRD) Af Amer >60 (>60 ml/min/1.73 sqM) Est GFR (MDRD) Non-Af >60 (>60 ml/min/1.73 sqM) Glucose 88 (74-99) mg/dL Calcium 9.3 (8.4-10.2) mg/dL Total Bilirubin 0.4 (0.2-1.3) mg/dL AST 21 (14-36) U/L ALT 29 (9-52) U/L Alkaline Phosphatase 52 (38-126) U/L Total Protein 7.1 (6.3-8.2) g/dL Albumin 4.2 (3.5-5.0) g/dL Amylase 51 (30-110) U/L Lipase 58 (23-300) U/L Urine Color Yellow Urine Appearance Cloudy H (Clear) Urine pH 7.5 (5.0-8.0) Ur Specific [place] 1.020 (1.001-1.035) Urine Protein 1+ H (Negative) Urine Glucose (UA) Negative (Negative) Urine Ketones Negative (Negative) Urine Blood Negative (Negative) Urine Nitrite Negative (Negative) Urine Bilirubin Negative (Negative) Urine Urobilinogen <2.0 (<2.0) mg/dL Ur Leukocyte Esterase Moderate H (Negative) Urine RBC 3 (0-5) /hpf Urine WBC 50 H (0-5) /hpf Ur Squamous Epith Cells 1 (0-4) /hpf Amorphous Sediment Rare H (None) /hpf Urine Bacteria Many H (None) /hpf Urine Mucus Rare H (None) /hpf Urine HCG, Qual Detected (Not Detectd) 01/12/17 Range/Units 21:49 WBC 6.7 (3.8-10.6) k/uL RBC 4.06 (3.80-5.40) m/uL Hgb 11.0 L (11.4-16.0) gm/dL Hct 33.8 L (34.0-46.0) % MCV 83.2 (80.0-100.0) fL MCH 27.1 (25.0-35.0) pg MCHC 32.5 (31.0-37.0) g/dL RDW 17.0 H (11.5-15.5) % Plt Count 204 (150-450) k/uL Neutrophils % 57 % Lymphocytes % 33 % Monocytes % 5 % Eosinophils % 2 % Basophils % 0 % Neutrophils # 3.8 (1.3-7.7) k/uL Lymphocytes # 2.2 (1.0-4.8) k/uL Monocytes # 0.3 (0-1.0) k/uL Eosinophils # 0.1 (0-0.7) k/uL Basophils # 0.0 (0-0.2) k/uL Anisocytosis Slight Sodium (137-145) mmol/L Potassium (3.5-5.1) mmol/L Chloride (98-107) mmol/L Carbon Dioxide (22-30) mmol/L Anion Gap mmol/L BUN (7-17) mg/dL Creatinine (0.52-1.04) mg/dL Est GFR (MDRD) Af Amer (>60 ml/min/1.73 sqM) Est GFR (MDRD) Non-Af (>60 ml/min/1.73 sqM) Glucose (74-99) mg/dL Calcium (8.4-10.2) mg/dL Total Bilirubin (0.2-1.3) mg/dL AST (14-36) U/L ALT (9-52) U/L Alkaline Phosphatase (38-126) U/L Total Protein (6.3-8.2) g/dL Albumin (3.5-5.0) g/dL Amylase (30-110) U/L Lipase (23-300) U/L Urine Color Urine Appearance (Clear) Urine pH (5.0-8.0) Ur Specific [place] (1.001-1.035) Urine Protein (Negative) Urine Glucose (UA) (Negative) Urine Ketones (Negative) Urine Blood (Negative) Urine Nitrite (Negative) Urine Bilirubin (Negative) Urine Urobilinogen (<2.0) mg/dL Ur Leukocyte Esterase (Negative) Urine RBC (0-5) /hpf Urine WBC (0-5) /hpf Ur Squamous Epith Cells (0-4) /hpf Amorphous Sediment (None) /hpf Urine Bacteria (None) /hpf Urine Mucus (None) /hpf Urine HCG, Qual (Not Detectd) - Radiology Data Radiology results: report reviewed, image reviewed Disposition Clinical Impression: Abdominal pain affecting , Urinary tract infection Disposition: HOME SELF-CARE Condition: Good Instructions: Abdominal Pain in (ED), Urinary Tract Infection in (ED) Additional Instructions: Take antibiotics as directed. Take Reglan as needed for nausea. Drink plenty of water. Please follow-up with [facility]. If any new symptom arises or symptoms worsen, return to ER as soon as possible. Prescriptions: Nitrofurantoin Monohyd/M-Cryst [Macrobid] 100 mg PO Q12HR 5 Days Metoclopramide HCl [Reglan] 5 mg PO TID PRN #12 tablet PRN Reason: Nausea Referrals: Ailyn Barahona DO [Doctor of Osteopathic Medicine] - 1-2 days Time of Disposition: 23:07
[2017-01-12 22:16] LABS: Anisocytosis Slight; Basophils % (A) 0 %; CH 26.9; CHCM 32.5; Eosinophils # (A) 0.1 k/uL (0-0.7); Eosinophils % (A) 2 %; HCT 33.8 % (34.0-46.0); HDW 2.63; Luc # (Auto) 0.22; Luc % (Auto) 3; Lymphocytes # (A) 2.2 k/uL (1.0-4.8); Lymphocytes % (A) 33 %; MCH 27.1 pg (25.0-35.0); MCHC 32.5 g/dL (31.0-37.0); MCV 83.2 fL (80.0-100.0); Mean Platelet Volume 8.5; Monocytes # (A) 0.3 k/uL (0-1.0); Monocytes % (A) 5 %; Neutrophils # (A) 3.8 k/uL (1.3-7.7); Neutrophils % (A) 57 %; RBC 4.06 m/uL (3.80-5.40); WBC 6.7 k/uL (3.8-10.6)
[2017-01-12 22:25] LABS: ALT 29 U/L (9-52); AST 21 U/L (14-36); Alkaline Phosphatase 52 U/L (38-126); Amylase 51 U/L (30-110); Anion Gap 12 mmol/L; Blood Urea Nitrogen 11 mg/dL (7-17); Calcium 9.3 mg/dL (8.4-10.2); Carbon Dioxide 22 mmol/L (22-30); Chloride 105 mmol/L (98-107); Glucose 88 mg/dL (74-99); Non-African American GFR(MDRD) >60 (>60 ml/min/1.73 sqM); Potassium 4.1 mmol/L (3.5-5.1); Sodium 139 mmol/L (137-145); Total Bilirubin 0.4 mg/dL (0.2-1.3); Total Protein 7.1 g/dL (6.3-8.2)
--- NOTE | 2017-01-12 22:46 | US ---
Ultrasound First Trimester INDICATION: 21-year-old woman with pain. COMPARISON: None. TECHNIQUE: Real-time sonographic evaluation of the female pelvis obtained using grayscale and color flow. FINDINGS: Uterus: 12.3 x 5.6 x 6.1 cm Right Ovary: 3.2 x 2.1 x 2.2 cm with corpus luteum cyst. Left Ovary: 2.3 x 1.4 x 1.4 cm No evidence of abnormal adnexal mass or significant free pelvic fluid. There is an intrauterine gestational sac with yolk sac and pole. Whitten-rump length measures 1.9 cm, corresponding to 8 weeks 3 days gestational age. Placental location is not distinguishable at this time. heart rate measures 163 bpm. There is a 2.0 x 0.6 x 1.3 cm hypoechoic, avascular collection adjacent to the gestational sac compatible with a subchorionic hemorrhage. IMPRESSION: Single live intrauterine gestation with estimated gestational age by this ultrasound of 8 weeks 3 days and estimated delivery date of 08/21/17. Subchorionic hemorrhage measuring 2.0 x 0.6 x 1.3 cm.
[2017-01-12] MEDS ORDERED: NITROFURANTOIN MONOHYD/M-CRYST 100 MG CAP PO STA (23:06)
[2017-01-12 23:27] VITALS: BP 129/70; PULSE 89; RESP 16; TEMP 98.2
== END 2017-01-12 23:20 | disposition home or self-care (01) ==
LOC: EC 19:36
DX: O23.41 Unspecified infection of urinary tract in pregnancy, first trimester (principal); O20.9 Hemorrhage in early pregnancy, unspecified; Z79.899 Other long term (current) drug therapy; Z90.49 Acquired absence of other specified parts of digestive tract; Z3A.08 8 weeks gestation of pregnancy
CPT/HCPCS: 96361 ×2; 96374 ×2; 96375 ×2; 99284 ×2; 36415; 80053; 82150; 83690; 85025; 81001; 81025; 84702; 76801; J1200; J3415

== ENCOUNTER → 2017-02-25 | Outpatient (CLI) | payer OTHER ==
--- NOTE | 2017-02-25 16:46 | US ---
EXAMINATION TYPE: US OB >= 14 wk fetus DATE OF EXAM: 02/25/2017 COMPARISON: US 01/12/2017 CLINICAL HISTORY: Z36 Confirm dates; TECHNIQUE: Transabdominal (TA) GESTATIONAL AGE / DATING Physician Established: not established Dates by LMP: unknown Dates by First Scan: (14 weeks/5 days) EDC: 08/21/2017 Dates by Current Scan: (15 weeks/ 2 days) EDC: 08/17/2017 SURVEY IUP: Single PLACENTA: Fundal ; findings most consistent with a focal myometrial contraction is noted in posterior uterine wall PREVIA: No Previa JESUS: 9.5 cm Normal in appearance at <16 weeks when JESUS can be measured CERVICAL LENGTH (transabdominal: norm > 3.0cm): 4.6 cm BIOMETRY PRESENTATION: Breech LIE: Oblique BPD: 2.7 cm 14 weeks / 6 days HC: 10.6 cm 15 weeks / 0 days AC: 8.5 cm 14 weeks / 6 days FL: 1.8 cm 15 weeks / 2 days ESTIMATED WEIGHT IN GRAMS: 112.4 grams ESTIMATED WEIGHT IN LBS/OZ: 0 lbs. 4 oz. WEIGHT PERCENTAGE BASED ON ESTABLISHED DATES: NA as this exam is to confirm dates and patient was uns ure if 01/12/2017 US was for this same HC/AC: 1.25 Normal FL/AC: 20.8 Normal HEART RATE: 143 bpm RHYTHM: Normal Single, live IUP,15 weeks/ 2 days, EDC: 08/17/2017, [id number]. IMPRESSION: Single live intrauterine with a sonographic gestational age of 15 weeks and 2 days and an e stimated date of delivery of 08/17/2017. Dates are concordant with the prior ultrasound.
== END | disposition home or self-care (01) ==
LOC: RADUSWWP 15:32
PROVIDERS: ATTEND Obstetrics & Gynecology
DX: Z36 Encounter for antenatal screening of mother (principal); Z3A.15 15 weeks gestation of pregnancy
CPT/HCPCS: 76805

== ENCOUNTER 2017-08-15 09:27 | Outpatient (CLI) | payer OTHER ==
[2017-08-15 10:40] VITALS: BP 117/73; PULSE 78; RESP 16; TEMP 97.7
--- NOTE | 2017-08-24 08:48 | P.MSEPDOC ---
Presenting Problems - Arrival Data Date of Arrival on Unit: 08/15/17 Time of Arrival on Unit: 09:27 Mode of Transport: Ambulatory - Complaint OB-Reason for Admission/Chief Complaint: Possible Onset of Labor, Rule Out SROM Medical History - Information : 5 Para: 3 Term: 2 : 1 Abortions: Spontaneous or Elective: 1 Number of Living Children: 4 - Gestational Age Gestational Age by SABA (wks/days): 39 Weeks and 1 Days Review of Systems - Review of Systems Constitutional: No problems Breast: No problems ENT: No problems Cardiovascular: No problems Respiratory: No problems Gastrointestinal: No problems Genitourinary: No problems Musculoskeletal: No problems Neurological: No problems Skin: No problems Vital Signs - Temperature Temperature: 97.7 F Temperature Source: Oral - Pulse Right Brachial Pulse Rate: 78 Pulse Assessment Method: Automatic Cuff - Respirations Respiratory Rate: 16 Oxygen Delivery Method: Room Air - Blood Pressure Right Arm Blood Pressure: 117/73 Blood Pressure Mean: 87 Blood Pressure Source: Automatic Cuff Medical Screen Scoring (Pre) - Cervical Exam Dilation: 1-3 cm = 1 Membranes: Intact - Uterine Contractions Frequency: N/A Duration: N/A Intensity: N/A - Maternal Vital Signs Maternal Temperature: N/A Maternal Blood Pressure: N/A Signs of Preeclampsia: N/A Maternal Respirations: N/A - Pain Assessment Pain Location and Character: Lower, Back, Abdomen Pain Scale Used: Numeric (1 - 10) Pain Intensity: 7 Pain Management Goal: 2 Pain Description: Dull Pain Frequency: Constant Pain Duration Units: Hours Pain Behavior: None Exhibited Pain Aggravating Factors: None - Maternal Trauma Maternal Trauma: N/A - Assessment Baseline FHR: 140 Heart Rate - NICHD Category: Category I (Normal) = 0 NST: Reactive Position: N/A - Total Score Total Score (Pre): 1 - Level of Risk Level of Risk: Low (0-5) Physician Notification (Pre) - Physician Notified Physician Notified Date: 08/15/17 Physician Notified Time: 10:11 Physician/Practitioner Notifed:: astrid Spoke With: astrid New Order Received: Yes - Notification Comment Comment: reported pts visit to triage with concerns of rom and possible labour. reported reactive nst, no contractions, neg amnisure. reported pt is scheduled for section tomorrow am. discharges pt home with instruction Disposition - Disposition OB Disposition: Discharge to home Discharge Date: 08/15/17 Discharge Time: 10:20 I agree with the RN Medical Screening Exam: Yes Risk & Benefit of care provided described in d/c instruction: Yes Diagnosis: FALSE LABOR AT OR AFTER 37 COMPLETED WEEKS OF GESTATION
== END 2017-08-15 10:20 | disposition home or self-care (01) ==
LOC: FBPOP 09:27
PROVIDERS: ATTEND Obstetrics & Gynecology
DX: O47.1 False labor at or after 37 completed weeks of gestation (principal); Z3A.39 39 weeks gestation of pregnancy
CPT/HCPCS: 59025; 84112; G0463; 99213

== ENCOUNTER 2017-08-16 06:09 | Inpatient (IN) | payer OTHER ==
[2017-08-10 11:06] VITALS: BMI 37.9
[2017-08-16] MEDS ORDERED: CITRIC ACID-SODIUM CITRATE 15 ML CUP PO ONE (06:28)
[2017-08-16] MEDS ORDERED: ceFAZolin IN SWFI 2 GM/20 ML SYRINGE IVP ONE (06:28)
[2017-08-16 06:48] LABS: Anisocytosis Slight; Basophils % (A) 0 %; Eosinophils # (A) 0.1 k/uL (0-0.7); Eosinophils % (A) 1 %; HCT 30.6 % (34.0-46.0); HGB 9.3 gm/dL (11.4-16.0); Hypochromasia Marked; Lymphocytes # (A) 1.7 k/uL (1.0-4.8); Lymphocytes % (A) 20 %; MCH 27.8 pg (25.0-35.0); MCHC 30.5 g/dL (31.0-37.0); Mean Platelet Volume 8.6; Monocytes # (A) 0.4 k/uL (0-1.0); Monocytes % (A) 5 %; Neutrophils % (A) 71 %; Platelet Count 131 k/uL (150-450); RBC 3.36 m/uL (3.80-5.40); RDW 18.2 % (11.5-15.5); WBC 8.5 k/uL (3.8-10.6)
[2017-08-16] MEDS ORDERED: NALBUPHINE 10 MG/ML AMPUL ONE (07:58)
[2017-08-16] MEDS ORDERED: PHENYLEPHRINE-0.9% NACL SYG 1 MG/10 ML SYRINGE ONE (07:58)
[2017-08-16] MEDS ORDERED: ONDANSETRON 4 MG/2 ML VIAL ONE (07:58)
[2017-08-16] MEDS ORDERED: OXYTOCIN 10 UNIT/ML 1 ML VIAL ONE (07:58)
[2017-08-16] MEDS ORDERED: KETOROLAC 30 MG/ML 1 ML VIAL ONE (07:58)
[2017-08-16] MEDS ORDERED: DEXAMETHASONE SOD PHOS (MDV) 100 MG/10 ML VIAL ONE (07:58)
[2017-08-16] MEDS ORDERED: MORPHINE SULFATE (PF) 0.3 MG/0.3 ML SYR ONE (07:58)
[2017-08-16] MEDS ORDERED: LANOLIN CREAM 5 GM TUBE TOPICAL PRN (08:43)
[2017-08-16] MEDS ORDERED: ZOLPIDEM 5 MG TAB PO PRN (08:43)
[2017-08-16] MEDS ORDERED: diphenhydrAMINE 25 MG CAP PO PRN (08:43)
[2017-08-16] MEDS ORDERED: ACETAMINOPHEN TAB 325 MG TAB PO PRN (08:43)
[2017-08-16] MEDS ORDERED: diphenhydrAMINE 50 MG/ML 1 ML VIAL IVP PRN ×2 (08:43)
[2017-08-16] MEDS ORDERED: NALOXONE 0.4 MG/ML 1 ML VIAL IV PRN ×2 (08:43→10:22)
[2017-08-16] MEDS ORDERED: diphenhydrAMINE 50 MG CAP PO PRN (08:43)
[2017-08-16] MEDS ORDERED: ONDANSETRON 4 MG/2 ML VIAL IVP PRN (08:43)
[2017-08-16] MEDS ORDERED: METOCLOPRAMIDE 5 MG/ML 2 ML VIAL IVP PRN (08:43)
[2017-08-16] MEDS ORDERED: OXYTOCIN 20 UNITS/1000 ML NS 1,000 ML IV SCH (08:45)
--- NOTE | 2017-08-16 08:48 | P.HPOB ---
History of Present Illness H&P Date: 08/16/17 Chief Complaint: Repeat with TL 22 year old at 39 weeks 2 days presents for repeat with tubal ligation. Review of Systems All systems: negative Constitutional: Denies chills, Denies fever Eyes: denies blurred vision, denies pain Ears, nose, mouth and throat: Denies headache, Denies sore throat Cardiovascular: Denies chest pain, Denies shortness of breath Respiratory: Denies cough Gastrointestinal: Denies abdominal pain, Denies diarrhea, Denies nausea, Denies vomiting Genitourinary: Denies dysuria, Denies hematuria Musculoskeletal: Denies myalgias Integumentary: Denies pruritus, Denies rash Neurological: Denies numbness, Denies weakness Psychiatric: Denies anxiety, Denies depression Endocrine: Denies fatigue, Denies weight change Past Medical History Past Medical History: No Reported History Additional Past Medical History / Comment(s): OB history: She has had one vaginal delivery, 2 sections and one miscarriage. This is her fifth and she has had care with me since the first trimester. History of Any Multi-Drug Resistant Organisms: None Reported Past Surgical History: Section, Cholecystectomy Additional Past Surgical History / Comment(s): X 2 Past Anesthesia/Blood Transfusion Reactions: No Reported Reaction Smoking Status: Never smoker Past Alcohol Use History: None Reported Past Drug Use History: None Reported - Past Family History Mother History Unknown: Yes Family Medical History: No Reported History Medications and Allergies Home Medications Medication Instructions Recorded Confirmed Type Pnv,Calcium 72/Iron/Folic Acid 2 tab PO DAILY 01/12/17 08/16/17 History [ Plus Tablet] Allergies Allergy/AdvReac Type Severity Reaction Status Date / Time No Known Allergies Allergy Verified 08/16/17 06:26 Exam Osteopathic Statement: *. No significant issues noted on an osteopathic structural exam other than those noted in the History and Physical/Consult. - Vital Signs Vital signs: Vital Signs Temp Pulse Resp BP Pulse Ox 08/16/17 06:29 97.1 F L 81 17 129/77 99 Intake and Output 08/15/17 08/16/17 08/16/17 22:59 06:59 14:59 Other: Weight 106.594 kg Heart: Regular rate and rhythm Lungs: Clear to auscultation bilaterally Abdomen: Soft, nontender Extremities: Negative Homans sign Results Result Diagrams: 08/16/17 06:25 Abnormal Lab Results - Last 24 Hours (Table) 08/16/17 Range/Units 06:25 RBC 3.36 L (3.80-5.40) m/uL Hgb 9.3 L (11.4-16.0) gm/dL Hct 30.6 L (34.0-46.0) % MCHC 30.5 L (31.0-37.0) g/dL RDW 18.2 H (11.5-15.5) % Plt Count 131 L (150-450) k/uL Assessment and Plan (1) Previous section Current Visit: Yes Status: Acute Code(s): Z98.891 - HISTORY OF UTERINE SCAR FROM PREVIOUS SURGERY SNOMED Code(s): 840308459 (2) Family planning Current Visit: Yes Status: Acute Code(s): Z30.09 - ENCOUNTER FOR OTH GENERAL CNSL AND ADVICE ON CONTRACEPTION SNOMED Code(s): 685951304 Plan: 1. plan repeat with tubal ligation
--- NOTE | 2017-08-16 08:51 | P.OP ---
Date of Procedure: 08/16/17 Preoperative Diagnosis: 1. at 39 weeks 2 days 2. previous 3. family planning Postoperative Diagnosis: 1. at 39 weeks 2 days 2. previous 3. family planning Procedure(s) Performed: Repeat low transverse with tubal ligation Anesthesia: spinal Surgeon: Ailyn Barahona Machine Feeder Raw Stock #1: Makeda Menard Estimated Blood Loss (ml): 500 IV fluids (ml): 1,000 Urine output (ml): 500 Pathology: other (placenta) Condition: stable Disposition: floor Operative Findings: viable female, 9,9 weight 6#9 oz Description of Procedure: Patient was taken to the operating room where spinal anesthesia was found be adequate. She was prepped and draped in normal sterile fashion in dorsal supine position with a leftward tilt. Pfannenstiel skin incision was made the scalpel and carried through to the underlying layer of fascia with the scalpel. Fascia was incised in midline and carried bilaterally with the Canales scissors. The superior aspect of the fascial incision was grasped with Koki clamps elevated and the underlying rectus muscles dissected off with the Canales's. Attention was then turned to inferior aspect of same incision which in a similar fashion was grasped tented up and the underlying rectus muscles dissected off with the Canales's. The rectus muscles were the midline and the peritoneum was identified tented up and entered sharply with the scalpel. The incision was extended superiorly and inferiorly with good visualization of the bladder. The bladder blade was inserted and the vesicouterine peritoneum was incised the Metzenbaums then carried bilaterally and bladder flap created digitally. A low transverse incision was then made on the uterus with the scalpel. This was carried bilaterally and digital manner. Infant's head delivered atraumatically, nose and mouth bulb suctioned, cord clamped and cut, infant handed off to waiting nurses. Apgars 9,9, weight 6 lbs. 9 oz. Placenta delivered manually, intact with three-vessel cord. The uterus is exteriorized and cleared of all clots and debris. The uterine incision was closed with 0 Vicryl in a running locked fashion. Second layer of the same sutures used in imbricating fashion to obtain excellent hemostasis. Both ovaries and tubes appeared normal. The right fallopian tube was grasped with a hemostat and a window was made in the mesosalpinx with the Bovie. The right fallopian tube was doubly ligated and a portion was removed. The pedicles were cauterized with the Bovie. The left fallopian tube was grasped with a hemostat and a window was made in the mesosalpinx with the Bovie. The left fallopian tube was doubly ligated and a portion was removed. Pedicles were cauterized with the Bovie. The uterus was placed back into the abdomen. The peritoneum was reapproximated using 2-0 Vicryl in a running fashion. The muscles were reapproximated using 2-0 Vicryl in interrupted fashion. The fascia was reapproximated using 0 Vicryl in a running fashion. The subcutaneous tissues closed with 3-0 Vicryl running fashion. The skin was closed taran. Patient tolerated the procedure well, sponge and instrument counts were correct times 2 and she was taken to the recovery room in stable condition.
[2017-08-16] MEDS ORDERED: MORPHINE SULFATE 2 MG/ML SYRINGE IVP PRN (10:22)
[2017-08-16] MEDS: LACTATED RINGERS 1,000 ML IV SCH ×2 (12:00→21:25)
[2017-08-16] MEDS: KETOROLAC 30 MG/ML 1 ML VIAL IVP PRN (19:35)
[2017-08-16] MEDS: SENNOSIDES-DOCUSATE SODIUM 1 EACH TAB PO SCH (21:25)
[2017-08-17] MEDS: KETOROLAC 30 MG/ML 1 ML VIAL IVP PRN (03:08)
--- NOTE | 2017-08-17 05:25 | P.PN ---
Progress Note - Text Date: 08/17/17 Time: 12 15 The patient is status post section Vital signs stable VAS:0-10 Patient has no complaints of pain. The patient incurred some minimal itching yesterday, this itching is now subsiding. Pain meds to be managed by service.
[2017-08-17] MEDS: SENNOSIDES-DOCUSATE SODIUM 1 EACH TAB PO SCH ×2 (07:53→19:39)
[2017-08-17 08:15] LABS: Anisocytosis Slight; Basophils % (A) 0 %; Eosinophils # (A) 0.1 k/uL (0-0.7); Eosinophils % (A) 1 %; HCT 25.8 % (34.0-46.0); HGB 7.9 gm/dL (11.4-16.0); Hypochromasia Moderate; Lymphocytes # (A) 1.8 k/uL (1.0-4.8); Lymphocytes % (A) 17 %; MCH 27.6 pg (25.0-35.0); MCHC 30.4 g/dL (31.0-37.0); MCV 90.7 fL (80.0-100.0); Mean Platelet Volume 10.2; Monocytes # (A) 0.5 k/uL (0-1.0); Monocytes % (A) 5 %; Neutrophils # (A) 8.1 k/uL (1.3-7.7); Neutrophils % (A) 76 %; Platelet Count 126 k/uL (150-450); RBC 2.84 m/uL (3.80-5.40); RDW 17.8 % (11.5-15.5); WBC 10.7 k/uL (3.8-10.6)
[2017-08-17] MEDS: SIMETHICONE 80 MG CHEWABLE PO PRN ×2 (11:30→18:59)
--- NOTE | 2017-08-17 11:54 | P.PNOBGPC ---
Subjective - Subjective Principal diagnosis: S/P RLTCS with TL POD #1 Interval history: Pt seen and examined. Denies N/V, F/C, CP, SOB or calf pain. Patient reports: Reports appetite normal, Reports voiding normally, Reports pain well controlled, Reports ambulating normally [place]: doing well Objective - Vital Signs Latest vital signs: Vital Signs Temp Pulse Resp BP Pulse Ox 08/17/17 07:44 98.2 F 82 16 92/58 08/17/17 07:43 16 08/17/17 06:00 16 08/17/17 04:00 97.8 F 93 15 100/56 98 08/17/17 02:00 14 08/17/17 00:00 98.1 F 88 17 111/72 98 08/16/17 22:00 17 08/16/17 20:00 97.7 F 75 17 117/72 98 08/16/17 19:12 98 08/16/17 18:00 16 08/16/17 16:00 97.4 F L 79 16 108/86 08/16/17 13:22 16 08/16/17 12:14 98.6 F 97 18 110/68 Intake and Output 08/16/17 08/17/17 08/17/17 22:59 06:59 14:59 Output Total 500 400 Balance -500 -400 Output: Urine 500 400 Uretheral ([place]) 300 Other: # Voids 1 1 - Exam Lungs: bilateral: normal Chest: Normal S1, Normal S2 Extremities: Present: normal Abdomen: Present: normal appearance, soft. Absent: distention, tenderness Incision: Present: normal, dry, intact Uterus: Present: normal, firm - Labs Labs: Abnormal Lab Results - Last 24 Hours (Table) 08/17/17 Range/Units 07:56 WBC 10.7 H (3.8-10.6) k/uL RBC 2.84 L (3.80-5.40) m/uL Hgb 7.9 L (11.4-16.0) gm/dL Hct 25.8 L (34.0-46.0) % MCHC 30.4 L (31.0-37.0) g/dL RDW 17.8 H (11.5-15.5) % Plt Count 126 L (150-450) k/uL Neutrophils # 8.1 H (1.3-7.7) k/uL Assessment and Plan (1) Previous section Current Visit: Yes Status: Resolved Code(s): Z98.891 - HISTORY OF UTERINE SCAR FROM PREVIOUS SURGERY SNOMED Code(s): 936796366 (2) Family planning Current Visit: Yes Status: Resolved Code(s): Z30.09 - ENCOUNTER FOR OT GENERAL CNSL AND ADVICE ON CONTRACEPTION SNOMED Code(s): 362917521 (3) Status post repeat low transverse section Current Visit: Yes Status: Acute Code(s): Z98.891 - HISTORY OF UTERINE SCAR FROM PREVIOUS SURGERY SNOMED Code(s): 906964586 Plan: 1. increase ambulation 2. po pain meds 3. advance diet with flatus
[2017-08-17] MEDS ORDERED: Acetaminophen-Codeine 300-30mg TAB PO PRN (11:55)
[2017-08-17] MEDS: Acetaminophen-Codeine 300-30mg TAB PO PRN (19:01)
[2017-08-18] MEDS: IBUPROFEN 600 MG TAB PO PRN ×2 (02:14→13:55)
--- NOTE | 2017-08-18 08:06 | P.DS ---
Providers Date of admission: 08/16/17 06:09 Expected date of discharge: 08/18/17 Attending physician: Ailyn Barahona Primary care physician: Stated None - Discharge Diagnosis(es) (1) Previous section Current Visit: Yes Status: Resolved (2) Family planning Current Visit: Yes Status: Resolved (3) Status post repeat low transverse section Current Visit: Yes Status: Acute Hospital Course: Patient presented for repeat low transverse and tubal ligation. Gen. at this procedure without complication. Her course was uneventful. Her incision is clean, dry, intact with taran. She is voiding and ambulating without difficulty and passing flatus. She is tolerating regular diet. She denies nausea, vomiting, chest pain, shortness of breath or calf pain. She'll be discharged home post operative day #2 in stable condition to follow-up with me in one week. Plan - Discharge Summary Discharge Rx Participant: Yes New Discharge Prescriptions: New Acetaminophen-Codeine 300-30mg [Tylenol w/codeine #3] 1 - 2 each PO Q6HR PRN #30 tab PRN Reason: Pain Ibuprofen [Motrin] 600 mg PO Q6HR PRN #30 tab PRN Reason: Mild Pain Or Fever >= 100.5 No Action Pnv,Calcium 72/Iron/Folic Acid [ Plus Tablet] 2 tab PO DAILY Discharge Medication List Pnv,Calcium 72/Iron/Folic Acid [ Plus Tablet] 2 tab PO DAILY 01/12/17 [ History] Acetaminophen-Codeine 300-30mg [Tylenol w/codeine #3] 1 - 2 each PO Q6HR PRN # 30 tab 08/18/17 [Rx] Ibuprofen [Motrin] 600 mg PO Q6HR PRN #30 tab 08/18/17 [Rx] Follow up Appointment(s)/Referral(s): Ailyn Barahona DO [Doctor of Osteopathic Medicine] - 1 Week Discharge Disposition: HOME SELF-CARE
[2017-08-18] MEDS: SIMETHICONE 80 MG CHEWABLE PO PRN ×2 (08:18→13:56)
[2017-08-18] MEDS: SENNOSIDES-DOCUSATE SODIUM 1 EACH TAB PO SCH (08:18)
[2017-08-18 09:09] VITALS: BP 119/68; PULSE 91; RESP 20; TEMP 98.8
[2017-08-18] MEDS: Acetaminophen-Codeine 300-30mg TAB PO PRN (10:36)
== END 2017-08-18 16:15 | disposition home or self-care (01) | DRG 766 ==
LOC: 4FBP 06:09
PROVIDERS: ADMIT Obstetrics & Gynecology; ATTEND Obstetrics & Gynecology
PROC: 10D00Z1 Extraction of Products of Conception, Low, Open Approach (ICD-10-PCS; principal; 2017-08-16 08:00)
PROC: 0UB70ZZ Excision of Bilateral Fallopian Tubes, Open Approach (ICD-10-PCS; principal; 2017-08-16 08:00)
DX: O34.211 Maternal care for low transverse scar from previous cesarean delivery (principal); Z30.2 Encounter for sterilization; Z37.0 Single live birth; Z3A.39 39 weeks gestation of pregnancy
CPT/HCPCS: 85025; 86850; 86900; 86901; 88302; 88307; 94760

== ENCOUNTER 2018-03-02 21:23 | Emergency (ER) | payer OTHER ==
[2018-03-02 22:24] VITALS: RESP 18
[2018-03-03 00:32] LABS: Appearance,Urine Cloudy (Clear); Bilirubin,Urine Negative (Negative); Blood,Urine Moderate (Negative); Color,Urine Yellow; Glucose,Urine (UA) Negative (Negative); Ketones,Urine Negative (Negative); Leukocyte Esterase,Urine Negative (Negative); Mucus,Urine Rare /hpf; Nitrite,Urine Negative (Negative); PH, Urine 5.5 (5.0-8.0); Protein,Urine Trace (Negative); RBC,Urine 1 /hpf (0-5); Squamous Epithelial Cell,Urine 9 /hpf (0-4); Urobilinogen,Urine <2.0 mg/dL (<2.0); WBC,Urine 2 /hpf (0-5)
[2018-03-03 00:34] LABS: ALT 29 U/L (9-52); AST 20 U/L (14-36); Albumin 4.3 g/dL (3.5-5.0); Alkaline Phosphatase 66 U/L (38-126); Amylase 61 U/L (30-110); Anion Gap 8 mmol/L; Blood Urea Nitrogen 14 mg/dL (7-17); Carbon Dioxide 25 mmol/L (22-30); Chloride 107 mmol/L (98-107); Glucose 98 mg/dL (74-99); Lipase 40 U/L (23-300); Potassium 3.9 mmol/L (3.5-5.1); Sodium 140 mmol/L (137-145); Total Bilirubin 0.3 mg/dL (0.2-1.3); Total Protein 7.4 g/dL (6.3-8.2)
--- NOTE | 2018-03-03 00:38 | ED ---
Abdominal Pain HPI - General Chief Complaint: Abdominal Pain Stated Complaint: Abd Pain Time Seen by Provider: 03/02/18 23:53 Source: patient, RN notes reviewed Mode of arrival: ambulatory Limitations: no limitations - History of Present Illness Initial Comments: This is a 23-year-old female who presents to the emergency department with chief complaint of abdominal pain for the past one month. Patient reports intermittent mid abdominal pressure and tightening. She states that usually happens before she eats. She admits to nausea but denies vomiting. She denies fevers or chills, chest pain shortness breath, dysuria or hematuria. She states that she has a history of cholecystectomy and tubal ligation. Patient states that pain is made worse by lying on her stomach. She states that while lying in bed this evening she developed this same abdominal pain and decided to come in for evaluation. Denies any worsening of pain. - Related Data Home Medications Medication Instructions Recorded Confirmed Pnv,Calcium 72/Iron/Folic Acid 2 tab PO DAILY 01/12/17 08/16/17 [ Plus Tablet] Previous Rx's Medication Instructions Recorded Acetaminophen-Codeine 300-30mg 1 - 2 each PO Q6HR PRN #30 tab 08/18/17 [Tylenol w/codeine #3] Ibuprofen [Motrin] 600 mg PO Q6HR PRN #30 tab 08/18/17 Allergies Allergy/AdvReac Type Severity Reaction Status Date / Time No Known Allergies Allergy Verified 08/16/17 06:26 Review of Systems ROS Statement: Those systems with pertinent positive or pertinent negative responses have been documented in the HPI. ROS Other: All systems not noted in ROS Statement are negative. Past Medical History Past Medical History: No Reported History Additional Past Medical History / Comment(s): OB history: She has had one vaginal delivery, 2 sections and one miscarriage. This is her fifth and she has had care with me since the first trimester. History of Any Multi-Drug Resistant Organisms: None Reported Past Surgical History: Section, Cholecystectomy Additional Past Surgical History / Comment(s): X 2 Past Anesthesia/Blood Transfusion Reactions: No Reported Reaction Past Psychological History: Anxiety Smoking Status: Never smoker Past Alcohol Use History: None Reported Past Drug Use History: None Reported - Past Family History Mother History Unknown: Yes Family Medical History: No Reported History General Exam - General Exam Comments Initial Comments: General: Awake and alert, well-developed; in no apparent distress. Patient does not appear acutely ill. Sitting comfortably on ED stretcher, speaking on the phone. HEENT: Head atraumatic, normocephalic. Pupils are equal, round and reactive to light. Extraocular movements intact. Oropharynx moist without erythema or exudate. Neck: Supple. Normal ROM. Cardiovascular: Regular rate and rhythm. No murmurs, rubs or gallops. Chest symmetrical. Respiratory: Lungs clear to auscultation bilaterally. No wheezes, rales or rhonchi. Normal respiratory effort with no use of accessory muscles. Abdomen: Soft, non-tender, non-distended. No rigidity, rebound or guarding. Normal bowel sounds in all 4 quadrants. Musculoskeletal: Normal ROM, no tenderness bilateral upper and lower extremities. Ambulating normally. Skin: [place], warm and dry without rashes or lesions. Neurological: Alert and oriented x3. CN II-XII grossly intact. Speech is fluent and answers are appropriate. No focal neuro deficits. Psychiatric: Normal mood and affect. No overt signs of depression or anxiety noted. Limitations: no limitations Course Vital Signs 03/02/18 22:19 Temperature 98.1 F Pulse Rate 77 Respiratory 18 Rate Blood Pressure 114/78 O2 Sat by Pulse 100 Oximetry Medical Decision Making - Medical Decision Making This is a 23-year-old female presents to the emergency department with chief complaint of abdominal pain. Patient reports abdominal pain for the past one month. She denies any worsening in severity but states that she has become concerned about it. Admits to nausea but denies any other symptoms. On physical examination, abdomen is soft and non-tender. She does not appear acutely ill. CBC revealed a hemoglobin of 10.1, however this is consistent with laboratory studies since 2013. CMP is completely unremarkable. UA did reveal moderate blood, patient states she recently ended her menstrual cycle. No signs of infection. Patient will be discharged home at this time. I will provide her with contact information for gastroenterology as well as local primary care provider to establish care with. Patient is in agreement with plan and voices understanding. She will be discharged home at this time. All questions were answered. - Lab Data Result diagrams: 03/03/18 00:10 03/03/18 00:10 Lab Results 03/03/18 03/03/18 03/03/18 Range/Units 00:10 00:10 00:10 WBC 7.6 (3.8-10.6) k/uL RBC 4.10 (3.80-5.40) m/uL Hgb 10.1 L (11.4-16.0) gm/dL Hct 32.7 L (34.0-46.0) % MCV 79.7 L (80.0-100.0) fL MCH 24.5 L (25.0-35.0) pg MCHC 30.8 L (31.0-37.0) g/dL RDW 18.4 H (11.5-15.5) % Plt Count 236 (150-450) k/uL Neutrophils % 54 % Lymphocytes % 37 % Monocytes % 5 % Eosinophils % 2 % Basophils % 0 % Neutrophils # 4.1 (1.3-7.7) k/uL Lymphocytes # 2.8 (1.0-4.8) k/uL Monocytes # 0.4 (0-1.0) k/uL Eosinophils # 0.1 (0-0.7) k/uL Basophils # 0.0 (0-0.2) k/uL Hypochromasia Marked Anisocytosis Slight Microcytosis Slight Sodium 140 (137-145) mmol/L Potassium 3.9 (3.5-5.1) mmol/L Chloride 107 (98-107) mmol/L Carbon Dioxide 25 (22-30) mmol/L Anion Gap 8 mmol/L BUN 14 (7-17) mg/dL Creatinine 0.70 (0.52-1.04) mg/dL Est GFR (CKD-EPI)AfAm >90 (>60 ml/min/1.73 sqM) Est GFR (CKD-EPI)NonAf >90 (>60 ml/min/1.73 sqM) Glucose 98 (74-99) mg/dL Calcium 9.0 (8.4-10.2) mg/dL Total Bilirubin 0.3 (0.2-1.3) mg/dL AST 20 (14-36) U/L ALT 29 (9-52) U/L Alkaline Phosphatase 66 (38-126) U/L Total Protein 7.4 (6.3-8.2) g/dL Albumin 4.3 (3.5-5.0) g/dL Amylase 61 (30-110) U/L Lipase 40 (23-300) U/L Urine Color Yellow Urine Appearance Cloudy H (Clear) Urine pH 5.5 (5.0-8.0) Ur Specific [place] 1.030 (1.001-1.035) Urine Protein Trace H (Negative) Urine Glucose (UA) Negative (Negative) Urine Ketones Negative (Negative) Urine Blood Moderate H (Negative) Urine Nitrite Negative (Negative) Urine Bilirubin Negative (Negative) Urine Urobilinogen <2.0 (<2.0) mg/dL Ur Leukocyte Esterase Negative (Negative) Urine RBC 1 (0-5) /hpf Urine WBC 2 (0-5) /hpf Ur Squamous Epith Cells 9 H (0-4) /hpf Urine Mucus Rare H (None) /hpf Disposition Clinical Impression: Abdominal pain, Anemia Disposition: HOME SELF-CARE Condition: Good Instructions: Abdominal Pain (ED), Anemia (ED) Additional Instructions: As discussed, please establish care with a primary care provider to address chronic abdominal pain and anemia. Contact information is provided. Return to emergency department if symptoms should worsen or any concerns arise. Is patient prescribed a controlled substance at d/c from ED?: No Referrals: None,Stated [Primary Care Provider] - 1-2 days Lazaro Wing MD [REFERRING] - 1-2 days Yris Bran MD [REFERRING] - 1-2 days Paulino Lynn MD [REFERRING] - 1-2 days Shaniqua Leon MD [STAFF PHYSICIAN] - 1-2 days Carmita Aguero III, MD [STAFF PHYSICIAN] - 1-2 days Jamari Irby MD [STAFF PHYSICIAN] - 1-2 days Time of Disposition: 01:08
[2018-03-03 00:48] LABS: Anisocytosis Slight; Basophils % (A) 0 %; Eosinophils # (A) 0.1 k/uL (0-0.7); Eosinophils % (A) 2 %; HCT 32.7 % (34.0-46.0); HGB 10.1 gm/dL (11.4-16.0); Hypochromasia Marked; Lymphocytes # (A) 2.8 k/uL (1.0-4.8); Lymphocytes % (A) 37 %; MCH 24.5 pg (25.0-35.0); MCHC 30.8 g/dL (31.0-37.0); MCV 79.7 fL (80.0-100.0); Mean Platelet Volume 7.9; Microcytosis Slight; Monocytes # (A) 0.4 k/uL (0-1.0); Monocytes % (A) 5 %; Neutrophils # (A) 4.1 k/uL (1.3-7.7); Neutrophils % (A) 54 %; Platelet Count 236 k/uL (150-450); RDW 18.4 % (11.5-15.5); WBC 7.6 k/uL (3.8-10.6)
[2018-03-03 01:44] VITALS: BP 116/72; PULSE 79; TEMP 97.5
== END 2018-03-03 01:20 | disposition home or self-care (01) ==
LOC: EC 21:23
DX: R10.9 Unspecified abdominal pain (principal); D64.9 Anemia, unspecified; R11.0 Nausea; Z90.49 Acquired absence of other specified parts of digestive tract
CPT/HCPCS: 80053; 81001; 82150; 83690; 85025; 99284

== ENCOUNTER 2018-09-26 16:51 | Emergency (ER) | payer OTHER ==
[2018-09-26 16:58] VITALS: RESP 18; TEMP 98.7
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
[2018-09-26 18:29] VITALS: BP 128/80; PULSE 91
== END 2018-09-26 18:35 | disposition home or self-care (01) ==
LOC: EC 16:51
DX: S06.0X0A Concussion without loss of consciousness, initial encounter (principal); V89.2XXA Person injured in unspecified motor-vehicle accident, traffic, initial encounter; Y92.89 Other specified places as the place of occurrence of the external cause
CPT/HCPCS: 99284

== ENCOUNTER 2020-06-25 19:51 | Emergency (ER) | payer OTHER ==
[2020-06-25 19:56] VITALS: BP 117/81; PULSE 67; RESP 18; TEMP 98.2
--- NOTE | 2020-06-25 20:22 | ED ---
ENT HPI - General Chief complaint: ENT Stated complaint: FR in R Ear Time Seen by Provider: 06/25/20 19:59 Source: patient Mode of arrival: ambulatory Limitations: no limitations - History of Present Illness Initial comments: 25-year-old female presenting to the emergency department with a chief complaint of earbud stuck in the right ear. States this occurred about one hour ago. No pain just discomfort. No loss of hearing. She states she's not been able to remove it. - Related Data Home Medications Medication Instructions Recorded Confirmed No Known Home Medications 09/26/18 09/26/18 Allergies Allergy/AdvReac Type Severity Reaction Status Date / Time No Known Allergies Allergy Verified 06/25/20 19:56 Review of Systems ROS Statement: Those systems with pertinent positive or pertinent negative responses have been documented in the HPI. ROS Other: All systems not noted in ROS Statement are negative. Past Medical History Past Medical History: No Reported History Additional Past Medical History / Comment(s): OB history: She has had one vaginal delivery, 2 sections and one miscarriage. This is her fifth and she has had care with me since the first trimester. History of Any Multi-Drug Resistant Organisms: None Reported Past Surgical History: Section, Cholecystectomy Additional Past Surgical History / Comment(s): X 2 Past Anesthesia/Blood Transfusion Reactions: No Reported Reaction Past Psychological History: Anxiety Smoking Status: Never smoker Past Alcohol Use History: None Reported Past Drug Use History: None Reported - Past Family History Mother History Unknown: Yes Family Medical History: No Reported History General Exam Limitations: no limitations General appearance: alert, in no apparent distress Head exam: Present: atraumatic, normocephalic, normal inspection Eye exam: Present: normal appearance, PERRL, EOMI Pupils: Present: normal accommodation ENT exam: Present: normal exam, normal oropharynx, mucous membranes dry, TM's normal bilaterally. Absent: normal external ear exam (Right ear foreign body, rubber part of the ear bud) Neck exam: Present: normal inspection, full ROM. Absent: tenderness Respiratory exam: Present: normal lung sounds bilaterally. Absent: respiratory distress, wheezes, rales Cardiovascular Exam: Present: regular rate, normal rhythm, normal heart sounds. Absent: systolic murmur, diastolic murmur Extremities exam: Present: normal inspection, full ROM. Absent: tenderness Back exam: Present: normal inspection, full ROM. Absent: tenderness Neurological exam: Present: alert, oriented X3 Psychiatric exam: Present: normal affect, normal mood Skin exam: Present: warm, dry, intact, normal color Course Vital Signs 06/25/20 19:52 Temperature 98.2 F Pulse Rate 67 Respiratory 18 Rate Blood Pressure 117/81 O2 Sat by Pulse 100 Oximetry Procedures - Foreign Body Removal Ear Location: ear canal (R) Foreign Body Suspected: plastic bead/other plastic Foreign Body Removed: yes Foreign Body Removal Technique: forceps Tympanic Membrane Intact: Yes Patient Tolerated Procedure: well, no complications Complications: none Medical Decision Making - Medical Decision Making 25-year-old female presenting to emergency Department with chief complaint of foreign body stuck in the right ear. On physical examination, patient has a foreign body in the right ear. I was able to remove it with forceps. Patient thought the procedure well. Return parameters discussed. Case discussed with physician. Disposition Clinical Impression: Foreign body in right ear Disposition: HOME SELF-CARE Condition: Stable Instructions (If sedation given, give patient instructions): Ear Foreign Body (ED) Additional Instructions: Return to emergency department if symptoms worsen. Is patient prescribed a controlled substance at d/c from ED?: No Referrals: None,Stated [Primary Care Provider] - 1-2 days Time of Disposition: 20:22
== END 2020-06-25 20:35 | disposition home or self-care (01) ==
LOC: EC 19:51
DX: T16.1XXA Foreign body in right ear, initial encounter (principal); X58.XXXA Exposure to other specified factors, initial encounter
CPT/HCPCS: 69200; 99282

== ENCOUNTER 2020-09-04 21:09 | Emergency (ER) | payer OTHER ==
[2020-09-04 21:26] VITALS: BP 119/82; PULSE 82; RESP 18; TEMP 98.4
--- NOTE | 2020-09-04 21:45 | ED ---
ENT HPI - General Chief complaint: ENT Stated complaint: Something in ear Time Seen by Provider: 09/04/20 21:31 Source: patient, family Mode of arrival: ambulatory - History of Present Illness Initial comments: 25-year-old male presents to emergency Department chief complaint of possible foreign body in the ear. Patient reports she has wireless earbuds and believes part of the ear but was left in her right ear. Patient reports having a sensation like the foreign body is still present. She denies any discharge or pain in the right ear. States this occurred about one hour prior to arrival. Denies any alleviating or aggravating factors. Denies any pain. - Related Data Home Medications Medication Instructions Recorded Confirmed No Known Home Medications 09/26/18 09/26/18 Allergies Allergy/AdvReac Type Severity Reaction Status Date / Time No Known Allergies Allergy Verified 09/04/20 21:26 Review of Systems ROS Statement: Those systems with pertinent positive or pertinent negative responses have been documented in the HPI. ROS Other: All systems not noted in ROS Statement are negative. Past Medical History Past Medical History: No Reported History Additional Past Medical History / Comment(s): OB history: She has had one vaginal delivery, 2 sections and one miscarriage. This is her fifth and she has had care with me since the first trimester. History of Any Multi-Drug Resistant Organisms: None Reported Past Surgical History: Section, Cholecystectomy Additional Past Surgical History / Comment(s): X 2 Past Anesthesia/Blood Transfusion Reactions: No Reported Reaction Past Psychological History: Anxiety Smoking Status: Never smoker Past Alcohol Use History: Rare Past Drug Use History: None Reported - Past Family History Mother History Unknown: Yes Family Medical History: No Reported History General Exam Limitations: no limitations General appearance: alert, in no apparent distress Head exam: Present: atraumatic, normocephalic, normal inspection Eye exam: Present: normal appearance, PERRL, EOMI Pupils: Present: normal accommodation ENT exam: Present: normal exam, normal oropharynx, mucous membranes moist, TM's normal bilaterally, normal external ear exam (no signs of any foreign body in the external auditory canal.) Neck exam: Present: normal inspection, full ROM. Absent: tenderness Respiratory exam: Present: normal lung sounds bilaterally. Absent: respiratory distress Cardiovascular Exam: Present: regular rate, normal rhythm, normal heart sounds Extremities exam: Present: normal inspection, full ROM Back exam: Present: normal inspection, full ROM Neurological exam: Present: alert, oriented X3, normal gait Psychiatric exam: Present: normal affect, normal mood Skin exam: Present: warm, dry, intact, normal color Course Vital Signs 09/04/20 21:23 Temperature 98.4 F Pulse Rate 82 Respiratory 18 Rate Blood Pressure 119/82 O2 Sat by Pulse 98 Oximetry Medical Decision Making - Medical Decision Making 25-year-old who presents emergency Department with a chief complaint of possible foreign body in the ear. On physical examination no signs of a foreign body. Patient advised to follow-up with primary care. Return parameters discussed. Case discussed with Disposition Clinical Impression: Discomfort of right ear Disposition: HOME SELF-CARE Condition: Stable Instructions (If sedation given, give patient instructions): Ear Foreign Body (ED) Additional Instructions: Please return to the Emergency Department if symptoms worsen or any other concerns. Is patient prescribed a controlled substance at d/c from ED?: No Referrals: Lazaro Wing MD [Primary Care Provider] - 1-2 days Time of Disposition: 21:45
== END 2020-09-04 21:55 | disposition home or self-care (01) ==
LOC: EC 21:09
DX: H93.8X9 Other specified disorders of ear, unspecified ear (principal)
CPT/HCPCS: 99282

== ENCOUNTER 2023-06-30 21:31 | Emergency (ER) | payer OTHER ==
[2023-06-30 21:45] VITALS: TEMP 98.6
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
[2023-06-30] MEDS ORDERED: IBUPROFEN 600 MG TAB PO STA (22:58)
[2023-06-30] MEDS ORDERED: CYCLOBENZAPRINE 10MG STARTER 3 TAB BTL PO STA (22:59)
[2023-06-30 23:40] VITALS: BP 136/88; PULSE 88; RESP 18
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
== END 2023-06-30 23:25 | disposition home or self-care (01) ==
LOC: EC 21:31
DX: R07.89 Other chest pain (principal); R45.6 Violent behavior; Z86.59 Personal history of other mental and behavioral disorders; Y04.0XXA Assault by unarmed brawl or fight, initial encounter
CPT/HCPCS: 71046; 93005; 99284

== ENCOUNTER 2023-07-29 13:20 | Emergency (ER) | payer OTHER ==
[2023-07-29 13:52] VITALS: RESP 18
[2023-07-29] MEDS ORDERED: TRIAMCINOLONE ACET 0.5% CREAM 15 GM TUBE TOPICAL ONE (14:22)
--- NOTE | 2023-07-29 14:28 | ED ---
Skin/Abscess/FB HPI - General Chief complaint: Animal Bite Stated complaint: right arm bite/swollen and warm Time Seen by Provider: 07/29/23 13:37 Source: patient, RN notes reviewed Mode of arrival: ambulatory Limitations: no limitations - History of Present Illness Initial comments: This is a 28 year old female who presents to the emergency department for concerns of a bug bite. States that when she woke up this morning she noticed an area of redness and swelling on her forearm, and is concerned that something may have bitten her in her sleep. Describes the area as itchy but not painful. She marked the area that was red and swollen initially, but states that it has started to spread outside of that area. Additionally, states that she had a tubal ligation in 2017 and had problems getting her period back initially. She did start having her period again and most recently had her period in May of 2023, but states that she took a test in June that was positive, and inquired as to what she should do with those results. Denies any abdominal/pelvic pain or vaginal bleeding. - Related Data Previous Rx's Medication Instructions Recorded Cyclobenzaprine [Flexeril] 10 mg PO TID PRN #15 tab 06/30/23 Ibuprofen [Motrin] 600 mg PO Q8HR PRN #30 tab 06/30/23 Cephalexin [Keflex] 500 mg PO Q6HR 5 Days #20 cap 07/29/23 Allergies Allergy/AdvReac Type Severity Reaction Status Date / Time No Known Allergies Allergy Verified 07/29/23 13:34 Review of Systems ROS Statement: Those systems with pertinent positive or pertinent negative responses have been documented in the HPI. ROS Other: All systems not noted in ROS Statement are negative. Past Medical History Past Medical History: No Reported History Additional Past Medical History / Comment(s): OB history: She has had one vaginal delivery, 2 sections and one miscarriage. This is her fifth and she has had care with me since the first trimester. History of Any Multi-Drug Resistant Organisms: None Reported Past Surgical History: Section, Cholecystectomy Additional Past Surgical History / Comment(s): X 2 Past Anesthesia/Blood Transfusion Reactions: No Reported Reaction Past Psychological History: Anxiety Smoking Status: Never smoker Past Alcohol Use History: Rare Past Drug Use History: None Reported - Past Family History Mother History Unknown: Yes Family Medical History: No Reported History General Exam Limitations: no limitations General appearance: alert, in no apparent distress Head exam: Present: atraumatic, normocephalic, normal inspection Respiratory exam: Present: normal lung sounds bilaterally. Absent: respiratory distress, wheezes, rales, rhonchi, stridor Cardiovascular Exam: Present: regular rate, normal rhythm, normal heart sounds. Absent: systolic murmur, diastolic murmur, rubs, gallop, clicks Extremities exam: Present: other (Firm area of swelling and erythema to the dorsal aspect of the right forearm. No tenderness.) Neurological exam: Present: alert, oriented X3, CN II-XII intact Psychiatric exam: Present: normal affect, normal mood Course Vital Signs 07/29/23 07/29/23 13:29 15:46 Temperature 97.4 F L 97.6 F Pulse Rate 71 70 Respiratory 18 18 Rate Blood Pressure 125/84 O2 Sat by Pulse 99 99 Oximetry Medical Decision Making - Medical Decision Making This is a 28-year-old female who presents to the emergency department for concerns of a bug bite. Was pt. sent in by a medical professional or institution? @ -No Did you speak to anyone other than the patient for history? @ -No Did you review nursing and triage notes? @ -Yes, and I agree, it is accurate with regards to the patient's symptoms. Were old charts reviewed? @ -No Differential Diagnosis? @ -Differential Insect Bite: Cellulitis, abscess, bite, this is not meant to be an all-inclusive list. EKG interpreted by me (3pts min.)? @ -Not obtained X-rays interpreted by me (1pt min.)? @ -Not obtained CT interpreted by me (1pt min.)? @ -Not obtained U/S interpreted by me (1pt. min.)? @ -Not obtained What testing was considered but not performed? (CT, X-rays, U/S, labs)? Why? @ -None What meds were considered but not given? Why? @ -None Did you discuss the management of the patient with other professionals? @ -No Did you reconcile home meds? @ -No Was smoking cessation discussed for >3mins.? @ -No Was critical care preformed (if so, how long)? @ -No Were there social determinants of health that impacted care today? How? (Homelessness, low income, unemployed, alcoholism, drug addiction, t ransportation, low edu. Level, literacy, decrease access to med. care, senior care, rehab)? @ -No Was there de-escalation of care discussed even if they declined? (Discuss DNR or withdrawal of care, Hospice)? @ -No What co-morbidities impacted this encounter? (DM, HTN, Smoking, COPD, CAD, Cancer, CVA, Hep., AIDS, mental health diagnosis, sleep apnea, morbid obesity)? @ -None Was patient admitted / discharged? @ -Discharged. Physical examination did appear to be consistent with that of an insect bite. Given the appearance and because it was itchy, it was more so suggestive of a histamine response. However, we cannot rule out a developing infection. A tube of triamcinolone cream was provided in the emergency department. She is advised to use this 3-4 times daily for 7 days. She was also given a dose of IM Decadron. Prescription for 5 day course of Keflex p rovided as well in the event there is any infectious component. Advised over the counter antihistamines such as Benadryl for further management of itching/swelling. Serum hCG was ordered due to her concern for a positive test last month. This was also found to be negative. Patient otherwise discharged home in stable condition with instructions to follow up with her PCP. Undiagnosed new problem with uncertain prognosis? @ -None Drug Therapy requiring intensive monitoring for toxicity (Heparin, Nitro, Insulin, Cardizem)? @ -None Were any procedures done? @ -None Diagnosis/symptom? @ -Insect bite Acute, or Chronic, or Acute on Chronic? @ -Acute Uncomplicated (without systemic symptoms) or Complicated (systemic symptoms)? @ -Uncomplicated Side effects of treatment? @ -None Exacerbation, Progression, or Severe Exacerbation] @ -Not applicable Poses a threat to life or bodily function? @ -No Return precautions reviewed in depth, the patient is instructed to return to the emergency department with any new, worsening, or concerning symptoms. Patient verbalized understanding. This case was discussed in detail with the attending ED physician, Dr. Pantoja. Presentation, findings, and treatment plan discussed in detail as well. - Lab Data Lab Results 07/29/23 Range/Units 14:24 HCG, Quant <2.4 mIU/mL Disposition Clinical Impression: Insect bite Disposition: HOME SELF-CARE Instructions (If sedation given, give patient instructions): Insect Bite or Sti ng (ED) Additional Instructions: Return to the emergency department with any new, worsening, or concerning symptoms. Take the antibiotic as prescribed for 5 days. Apply the steroid cream provided 3-4 times daily for up to a week. You can also take an [id number] antihistamine such as Benadryl to help with the itching. Follow up with your primary care provider in 1-2 days. Prescriptions: Cephalexin [Keflex] 500 mg PO Q6HR 5 Days #20 cap Is patient prescribed a controlled substance at d/c from ED?: No Referrals: Lazaro Wing MD [Primary Care Provider] - 1-2 days Time of Disposition: 15:30
[2023-07-29] MEDS ORDERED: DEXAMETHASONE SOD PHOSPHATE 10 MG/ML 1 ML VIAL IM STA (15:28)
[2023-07-29 15:53] VITALS: BP 125/84; PULSE 70; TEMP 97.6
== END 2023-07-29 15:47 | disposition home or self-care (01) ==
LOC: EC 13:20
DX: S51.851A Open bite of right forearm, initial encounter (principal); Z86.59 Personal history of other mental and behavioral disorders; W57.XXXA Bitten or stung by nonvenomous insect and other nonvenomous arthropods, initial encounter
CPT/HCPCS: 36415; 84702; 99283; 96372; J1100